=== PATIENT | male | born 1950 | race Caucasian/White ===

== ENCOUNTER 2020-07-03 15:26 | Emergency (ER) | payer MEDICARE, OTHER, SELFPAY | END 2020-07-03 16:44 | disposition left against medical advice (07) | PROVIDERS: Emergency Provider Emergency Medicine; PCP Internal Medicine | DX: R30.0 Dysuria (principal) | CPT/HCPCS: 99281 ==

== ENCOUNTER 2020-07-09 08:53 | Outpatient (REF) | payer MEDICARE, OTHER, SELFPAY ==
--- NOTE | 2020-07-09 | US_ITS ---
EXAMINATION: US THYROID CLINICAL INFORMATION: Multinodular goiter. COMPARISON: Thyroid ultrasound 08/22/2019 and 07/02/2018. Ultrasound-guided thyroid biopsy 06/15/2017. TECHNIQUE: Linear transducer avalos-scale and color Doppler examination with attention to the region of the thyroid. FINDINGS: SIZE: Measurements of the thyroid lobes and nodules are given in sagittal, anteroposterior and transverse dimensions respectively. Right Thyroid Lobe: 4.8 x 2.0 x 2.9 cm, volume 14.6 mL. Previously 5.0 x 3.0 x 2.8 cm, volume 21.3 mL. Parenchyma: The gland echotexture is heterogeneous. Thyroid vascularity is normal. Left Thyroid Lobe: 5.0 x 1.6 x 2.1 cm, volume 8.8 mL. Previously 5.4 x 1.8 x 2.2 cm, volume 11.3 mL. Parenchyma: The gland echotexture is heterogeneous. Thyroid vascularity is normal. Isthmus: 0.5 cm in maximum AP dimension. Previously 0.5 cm. RIGHT THYROID LOBE: There are 2 nodules seen. 1. Location: Mid pole. Size: 2.7 x 1.8 x 2.0 cm. Previous: 3.0 x 2.0 x 2.0 cm. Nodule characteristics: Heterogeneous nearly isoechoic with fine hypoechoic halo, smooth margin, no significant color flow. 2. Location: Lower pole. Size: 1.1 x 0.9 x 1.3 cm. Previous: 1.0 x 0.8 x 1.1 cm. Nodule characteristics: Moderate hypoechoic, ill-defined margin, no color flow. ISTHMUS: No nodules. LEFT THYROID LOBE: There is 1 nodule seen. 1. Location: Lower pole. Size: 0.7 x 0.5 x 0.7 cm. Previous: 0.8 x 0.7 x 0.6 cm. Nodule characteristics: Moderate hypoechoic, smooth margin, and no color flow NODES: No lymphadenopathy is seen in the tissue surrounding the thyroid gland. US/US thyroid IMPRESSION: 1. Thyroid slightly decreased in size from prior exam 08/22/2019. 2. Dominant nodule on right stable 2.7 cm, prior measurement 3.0 cm. 3. No new nodules. No adenopathy.
== END 2020-07-09 08:54 | disposition home or self-care (01) ==
LOC: HO.US 08:53
PROVIDERS: Visit Provider Internal Medicine Endocrinology, Diabetes & Metabolism
DX: E04.2 Nontoxic multinodular goiter (principal)
CPT/HCPCS: 76536

== ENCOUNTER → 2020-07-22 10:18 | Outpatient (BNVA) | payer MEDICARE, OTHER, SELFPAY | PROVIDERS: PCP Internal Medicine; Referring Provider Internal Medicine; Visit Provider Internal Medicine | DX: I48.0 Paroxysmal atrial fibrillation (principal); I42.9 Cardiomyopathy, unspecified; G47.33 Obstructive sleep apnea (adult) (pediatric); Z79.01 Long term (current) use of anticoagulants | CPT/HCPCS: 93005; 99212 ==

== ENCOUNTER 2020-07-30 15:37 | Outpatient (REF) | payer MEDICARE, OTHER, SELFPAY | END 2020-07-30 15:38 | disposition home or self-care (01) | LOC: HO.LAB 15:37 | PROVIDERS: Visit Provider Internal Medicine | DX: Z20.828 Contact with and (suspected) exposure to other viral communicable diseases (principal) | CPT/HCPCS: C9803; U0003 ==

== ENCOUNTER → 2020-08-07 09:21 | Outpatient (BNVA) | payer MEDICARE, OTHER, SELFPAY | PROVIDERS: PCP Internal Medicine; Referring Provider Internal Medicine; Visit Provider Internal Medicine Endocrinology, Diabetes & Metabolism | DX: Z13.89 Encounter for screening for other disorder (principal) | CPT/HCPCS: 99212 ==

== ENCOUNTER 2020-08-07 10:21 | Outpatient (REF) | payer MEDICARE, OTHER, SELFPAY ==
[2020-08-07 15:10] LABS: Free T4 (Free Thyroxine) 1.03 ng/dL (0.71-1.85); Thyroid Stimulating Hormone 0.49 uIU/mL (0.32-4.0)
[2020-08-08 08:27] LABS: Triiodothyronine T3 Total 102 ng/dL (76-181)
== END 2020-08-07 10:22 | disposition home or self-care (01) ==
LOC: HO.10HDL 10:21
PROVIDERS: Visit Provider Internal Medicine Endocrinology, Diabetes & Metabolism
DX: E04.2 Nontoxic multinodular goiter (principal)
CPT/HCPCS: 84439; 84443; 84480; 99212

== ENCOUNTER 2020-08-25 07:57 | Outpatient (REF) | payer MEDICARE, OTHER, SELFPAY | END 2020-08-25 07:58 | disposition home or self-care (01) | LOC: HO.LAB 07:57 | PROVIDERS: PCP Internal Medicine; Visit Provider Internal Medicine | DX: Z20.828 Contact with and (suspected) exposure to other viral communicable diseases (principal) | CPT/HCPCS: C9803; U0003 ==

== ENCOUNTER 2020-08-31 08:29 | Outpatient (REF) | payer MEDICARE, OTHER, SELFPAY ==
[2020-08-31 11:09] LABS: PSA,Total (Free>4and<10) 4.28 ng/mL (0.00-4.00)
[2020-09-02 10:23] LABS: Free Prostate Spec Ag 0.6 ng/mL; Percent Free Prostate Spec Ag 15 % (calc) (>25); Prostate Specific Ag Total 3.9 ng/mL (< OR = 4.0)
== END 2020-08-31 08:30 | disposition home or self-care (01) ==
LOC: HO.10HDL 08:29
PROVIDERS: Visit Provider Urology
DX: R97.20 Elevated prostate specific antigen [PSA] (principal); Z12.5 Encounter for screening for malignant neoplasm of prostate
CPT/HCPCS: 84153; 84154

== ENCOUNTER 2020-09-07 08:28 | Outpatient (REF) | payer MEDICARE, OTHER, SELFPAY | END 2020-09-07 08:29 | disposition home or self-care (01) | LOC: HO.LAB 08:28 | PROVIDERS: PCP Internal Medicine; Visit Provider Internal Medicine | DX: Z20.828 Contact with and (suspected) exposure to other viral communicable diseases (principal) | CPT/HCPCS: C9803; U0003 ==

== ENCOUNTER → 2020-09-15 13:51 | Outpatient (BNVA) | payer MEDICARE, OTHER, SELFPAY | PROVIDERS: PCP Internal Medicine; Visit Provider Urology | DX: Z13.89 Encounter for screening for other disorder (principal) | CPT/HCPCS: Q3014 ==

== ENCOUNTER 2020-10-27 07:33 | Outpatient (REF) | payer MEDICARE, OTHER, SELFPAY | END 2020-10-27 07:34 | disposition home or self-care (01) | LOC: HO.LAB 07:33 | PROVIDERS: Visit Provider Internal Medicine | DX: Z20.822 Contact with and (suspected) exposure to COVID-19 (principal) | CPT/HCPCS: 36415; C9803; U0003; U0005 ==

== ENCOUNTER → 2020-10-29 14:10 | Outpatient (REF) | payer MEDICARE, OTHER, SELFPAY ==
--- NOTE | 2020-10-29 14:09 | ECG_ITS ---
Hook-up date: 2020-10-29 14:24:00 Duration: 22:35:00 Test Indications: PAF Medications: 42022 QRS complexes 1897 Ventricular ectopics which represent 2 % of total QRS comp. * Supraventricular ectopics which represent % of total QRS comp. * Paced QRS complexs which represent % of total QRS comp. VENTRICULAR ECTOPY 1846 Isolated 3 Bigeminal Cycles 24 Couplets 1 Runs 3 Beats in Runs 3 Beats LONGEST at 118 BPM at 04:38:15 2020-10-30 3 Beats FASTEST at 118 BPM at 04:38:15 2020-10-30 SUPRAVENTRICULAR ECTOPY * Isolated * Couplets * Runs * Beats in Runs * Beats LONGEST at * BPM at :: -- * Beats FASTEST at * BPM at :: -- HEART RATES 39 MIN at 01:10:26 2020-10-30 76 AVG 202 MAX at 14:47:01 2020-10-29 LONGEST RR 2.6640 secs at 01:16:48 2020-10-30 S-T LEVELS Channel 1 - 128 mm at 14:24:00 2020-10-29 - 128 mm at 14:24:00 2020-10-29 Channel 2 - 128 mm at 14:24:00 2020-10-29 - 128 mm at 14:24:00 2020-10-29 Channel 3 - 128 mm at 03:34:31 -- - 128 mm at 03:34:31 Basic rhythm Atrial fibrillation No long pause or profound bradycardia Adequate overall rate control with average HR of 76 bpm, however HR goes as high as 202 bpm Frequent Premature ventricular complexes One 3 beat beronica of NSVT at 118 bpm Patient did not report any symptoms in the diary Referred By: Zay Laguna Overread By: CRUZ CACERES MD
== END ==
LOC: HO.CARD 14:10
PROVIDERS: Visit Provider Internal Medicine
DX: I48.0 Paroxysmal atrial fibrillation (principal)
CPT/HCPCS: 93225; 93226

== ENCOUNTER → 2020-11-09 10:44 | Outpatient (BNVA) | payer MEDICARE, OTHER, SELFPAY | PROVIDERS: PCP Internal Medicine; Visit Provider Internal Medicine | DX: I48.0 Paroxysmal atrial fibrillation (principal); I42.8 Other cardiomyopathies; G47.33 Obstructive sleep apnea (adult) (pediatric) | CPT/HCPCS: 99212 ==

== ENCOUNTER → 2020-11-23 10:55 | Outpatient (REF) | payer MEDICARE, OTHER, SELFPAY | LOC: HO.SL 10:55 | PROVIDERS: Visit Provider Internal Medicine | DX: G47.33 Obstructive sleep apnea (adult) (pediatric) (principal) | CPT/HCPCS: 95806 ==

== ENCOUNTER → 2020-12-15 13:43 | Outpatient (REF) | payer MEDICARE, OTHER, SELFPAY ==
--- NOTE | 2020-12-15 13:47 | CA_ITS ---
Transthoracic Echocardiogram Patient (Last, First, Middle): Isaiah Dover F Gender: Male Date of : 1950 Age: 70 Procedure Date: 12/15/2020 Procedure Type: Transthoracic Echocardiogram Location: OP Height: 193.04 cm Weight: 122.47 kg BSA: 2.52 m2 Heart Rate: bpm BP: 132 / 78 mmHg Cellular Tower Climber: BARNEY Referring MD: Zay Laguna MD Symptoms: I42.9 - Cardiomyopathy, unspecified Study Quality: Fair ECG Rhythm: Atrial Fibrillation Conclusions: - The left ventricular systolic function is mildly decreased. The visually estimated ejection fraction is between 45-50%. - The left atrium is mildly dilated. - There is mild calcification of the aortic valve. - No obvious valvular pathology seen on this study. - The inferior vena cava is dilated and collapses greater than 50% with inspiration. Findings Left Ventricle Normal left ventricular cavity size. There is mildly increased left ventricular wall thickness. The left ventricular systolic function is mildly decreased. The visually estimated ejection fraction is between 45-50%. There is mild global hypokinesis. Diastolic function is indeterminate on the basis of available data. Right Ventricle Normal right ventricular cavity size and systolic function. Atria The left atrium is mildly dilated. The right atrium is normal in size. Aortic Valve There is a normal trileaflet aortic valve. There is mild calcification of the aortic valve. There is no aortic valve stenosis. There is mild aortic valve regurgitation. Mitral Valve The mitral valve appears normal. There is trace mitral valve regurgitation. There is no mitral valve stenosis. Pulmonic Valve The pulmonic valve was not well visualized. Tricuspid Valve Normal tricuspid valve structure. There is trace tricuspid valve regurgitation. The pulmonary artery systolic pressure is normal. Great Vessels The aortic annulus, sinuses of valsalva, and asc aorta are normal in size. Venous The inferior vena cava is dilated and collapses greater than 50% with inspiration. Pericardium/Pleural There is no evidence of pericardial effusion. Prior Study Comparison No significant change compared to prior study dated: 06/15/2020. Recommendations, Care & Conclusions No obvious valvular pathology seen on this study. Measurements M-Mode Liner Measurements Normals - Women/Men AOV Cusps: 1.90 1.5-2.6 cm/m2 2D Linear Measurements IVSd: 1.46 0.6-0.9/0.6-1.0 cm LVIDd: 3.59 3.9-5.3/4.2-5.9 cm LVIDd Index: 0.24 2.4-3.2/2.2-3.1 cm/m2 LVIDs: 3.04 2.0-3.6 cm LVPWd: 1.09 0.7-1.1 cm Ao Root: 3.00 2.1-3.5 cm LA Diam: 5.20 2.7-3.8/3.0-4.0 cm LAIDs Index: 0.34 1.5-2.3 cm/m2 LV Mass: 192.62 67-162/88-224 g LV Mass Index: 12.63 43-95/49-115 g/m2 LVOT Diam: 2.50 3.0+(-)1.3 cm 2D Systolic Function EF 4C: 41.00 >55% Mitral Valve MV Pk E: 0.87 MV Decel Time: 174.00 PHT: 51.00 MVA PHT: 4.31 Decel Mes[place]: 5.00 Aortic Valve AoV Pk James: 1.36 AoV Pk Grad: 7.00 AI Pk James: 4.49 AI [place]: 1.53 LVOT LVOT Pk James: 0.75 LVOT Mn James: 0.55 LVOT VTI: 0.16 LVOT Pk Grad: 2.00 LVOT Mn Grad: 1.00 LVOT Diam: 2.50 LVOT Area: 4.91 Diastolic Function MV Pk E: 0.87 Tricuspid Valve TR Pk James: 2.46 TR Pk Grad: 24.00 RA Press: 8.00 RVSP: 32.00 Great Vessels Aorta Ao Root-2D: 3.00 2.0-3.7 cm Ao Asc: 3.50 2.1-3.4 cm Ao Arch: 2.80 Pulmonary Valve PV Pk James: 0.80 Peak PV Grad: 3.00 Updated in Other Vendor System with Status of Final Zay Laguna MD electronically signed on 12/16/2020 9:13:53 AM with status of Final
== END ==
LOC: HO.CARD 13:43
PROVIDERS: Visit Provider Internal Medicine
DX: I42.9 Cardiomyopathy, unspecified (principal); I25.10 Atherosclerotic heart disease of native coronary artery without angina pectoris
CPT/HCPCS: 93306

== ENCOUNTER → 2020-12-21 10:49 | Outpatient (BNVA) | payer MEDICARE, OTHER, SELFPAY | PROVIDERS: PCP Internal Medicine; Visit Provider Internal Medicine | DX: I48.0 Paroxysmal atrial fibrillation (principal); I42.8 Other cardiomyopathies; E66.01 Morbid (severe) obesity due to excess calories; R06.83 Snoring | CPT/HCPCS: 99212 ==

== ENCOUNTER 2021-04-05 07:32 | Outpatient (REF) | payer MEDICARE, OTHER, SELFPAY | END 2021-04-05 07:33 | disposition home or self-care (01) | LOC: HO.10HDL 07:32 | PROVIDERS: Visit Provider Urology | DX: Z12.5 Encounter for screening for malignant neoplasm of prostate (principal); R97.20 Elevated prostate specific antigen [PSA] | CPT/HCPCS: 36415; 84153 ==

== ENCOUNTER → 2021-04-14 14:08 | Outpatient (BNVA) | payer MEDICARE, OTHER, SELFPAY | PROVIDERS: Visit Provider Urology | DX: N40.1 Benign prostatic hyperplasia with lower urinary tract symptoms (principal); N13.8 Other obstructive and reflux uropathy; N39.0 Urinary tract infection, site not specified; A49.9 Bacterial infection, unspecified; R97.20 Elevated prostate specific antigen [PSA] | CPT/HCPCS: 99212 ==

== ENCOUNTER 2021-05-18 12:12 | Outpatient (REF) | payer MEDICARE, OTHER, SELFPAY ==
[2021-05-18 13:49] LABS: Glucose Urine UA NEG (NEG); Leukocyte Esterase Urine 1+ (NEG); Nitrite Urine NEG (NEG); Urine Blood NEG (NEG); Urine Ketones NEG (NEG); Urine Protein NEG (NEG-TRACE)
[2021-05-18 13:56] LABS: Appearance Urine CLEAR; Color Urine YELLOW
[2021-05-18 14:18] LABS: Bacteria Urine 1+ /LPF; RBC Urine 0-2 /HPF (0); Squamous Epithelial Cell Urine 1+ /LPF
== END 2021-05-18 12:13 | disposition home or self-care (01) ==
LOC: HO.10HDL 12:12
PROVIDERS: Visit Provider Urology
DX: N13.8 Other obstructive and reflux uropathy (principal); N40.1 Benign prostatic hyperplasia with lower urinary tract symptoms
CPT/HCPCS: 81001; 87086

== ENCOUNTER → 2021-06-22 09:44 | Outpatient (BNVA) | payer MEDICARE, OTHER, SELFPAY | PROVIDERS: PCP Internal Medicine; Referring Provider Internal Medicine; Visit Provider Internal Medicine | DX: E66.01 Morbid (severe) obesity due to excess calories (principal); I42.8 Other cardiomyopathies; I48.19 Other persistent atrial fibrillation; R06.83 Snoring | CPT/HCPCS: 99212 ==

== ENCOUNTER 2021-08-27 07:46 | Outpatient (REF) | payer MEDICARE, OTHER, SELFPAY ==
[2021-08-27 10:05] LABS: MANUAL DIFF FLAG NO
[2021-08-27 10:08] LABS: Basophils Percent Auto 0.5 % (0-2); Eosinophils Absolute Auto 0.3 X10*3/uL (0.0-0.4); Eosinophils Percent Auto 3.7 % (0-4); Hematocrit 41.6 % (42.0-52.0); Hemoglobin 13.6 g/dl (14.0-18.0); Imm Gran Abs Auto 0.02 X10*3/uL (0.00-0.03); Imm Gran Pct Auto 0.3 % (0.0-0.4); Lymphocytes Absolute Auto 1.4 X10*3/uL (1.2-4.9); Lymphocytes Percent Auto 17.4 % (20-40); Mean Corpuscular HGB Conc 32.7 g/dl (31.0-36.0); Mean Corpuscular Hemoglobin 28.6 pg (27.0-33.0); Mean Corpuscular Volume 87.4 fL (80.0-98.0); Mean Platelet Volume 9.9 fL (9.4-12.4); Monocytes Absolute Auto 0.7 X10*3/uL (0.1-1.2); Monocytes Percent Auto 8.3 % (2-11); Neutrophils Absolute Auto 5.5 x10*3/uL (2.0-8.3); Neutrophils Percent Auto 69.8 % (45-73); Platelet Count 212 X10*3/uL (160-400); Red Blood Count 4.76 X10*6/uL (4.60-5.80); White Blood Count 7.8 X10*3/uL (4.8-10.8)
[2021-08-27 10:44] LABS: Cholesterol 106 mg/dL; HDL Cholesterol 25 mg/dL; LDL Cholesterol Calculated 56 mg/dl; Triglycerides 128 mg/dL
[2021-08-27 11:05] LABS: Free T4 (Free Thyroxine) 1.04 ng/dL (0.71-1.85)
[2021-08-27 11:25] LABS: Folate > 20.0 ng/mL (> or = 4.0)
[2021-08-27 12:45] LABS: Vitamin B12 424 pg/mL (200-900)
== END 2021-08-27 07:47 | disposition home or self-care (01) ==
LOC: HO.10HDL 07:46
PROVIDERS: Visit Provider Internal Medicine
DX: E11.65 Type 2 diabetes mellitus with hyperglycemia (principal); E78.00 Pure hypercholesterolemia, unspecified
CPT/HCPCS: 36415; 80061; 82607; 82746; 84439; 84443; 85025

== ENCOUNTER 2021-12-15 08:31 | Outpatient (REF) | payer MEDICARE, OTHER, SELFPAY ==
[2021-12-15 10:31] LABS: MANUAL DIFF FLAG NO
[2021-12-15 10:37] LABS: Basophils Percent Auto 0.4 % (0-2); Eosinophils Absolute Auto 0.2 X10*3/uL (0.0-0.4); Eosinophils Percent Auto 2.8 % (0-4); Hematocrit 45.6 % (42.0-52.0); Hemoglobin 15.1 g/dl (14.0-18.0); Imm Gran Abs Auto 0.03 X10*3/uL (0.00-0.03); Imm Gran Pct Auto 0.4 % (0.0-0.4); Immature Retic Fraction 9.8 % (2.3-13.4); Lymphocytes Absolute Auto 1.4 X10*3/uL (1.2-4.9); Lymphocytes Percent Auto 17.3 % (20-40); Mean Corpuscular HGB Conc 33.1 g/dl (31.0-36.0); Mean Corpuscular Hemoglobin 28.8 pg (27.0-33.0); Monocytes Absolute Auto 0.7 X10*3/uL (0.1-1.2); Monocytes Percent Auto 8.9 % (2-11); Neutrophils Absolute Auto 5.6 x10*3/uL (2.0-8.3); Neutrophils Percent Auto 70.2 % (45-73); Platelet Count 181 X10*3/uL (160-400); Red Blood Count 5.24 X10*6/uL (4.60-5.80); Red Cell Distribution Width 13.1 % (11.0-16.0); Retic HGB Equivalent 31.5 pg (30.0-35.0); Reticulocyte Percent 1.8 % (0.5-1.8); Reticulocytes Absolute 0.093 X10*6/uL (0.026-0.095)
[2021-12-15 10:54] LABS: Alanine Aminotransferase 19 U/L (0-40); Albumin Level 4.2 g/dL (3.5-5.0); Alkaline Phosphatase 63 U/L (39-117); Anion Gap 13 (12-20); Aspartate Amino Transferase 16 U/L (5-37); Bilirubin Total 0.9 mg/dL (0.0-1.0); Blood Urea Nitrogen 25 mg/dL (9-16); Calcium 9.4 mg/dL (8.4-10.2); Carbon Dioxide 27 mmol/L (22-29); Chloride 102 mmol/L (96-108); Estimated Glomerular Filt Rate 50; Glucose Random 176 mg/dL (60-115); Iron 71 mcg/dL (45-160); Percent Iron Saturation 21 % (15-50); Potassium 3.8 mmol/L (3.3-5.1); Sodium 138 mmol/L (135-145); Total Iron Binding Capacity 337 mcg/dL (228-428); Total Protein 6.9 g/dL (6.5-8.0); Unsaturated Iron Binding 266 ug/dL
[2021-12-15 11:16] LABS: Free T4 (Free Thyroxine) 1.07 ng/dL (0.71-1.85); Thyroid Stimulating Hormone 0.75 uIU/mL (0.32-4.0)
[2021-12-15 11:24] LABS: Creatinine Urine 237.61 mg/dL; Microalbum/Creatinine Ratio Ur 19.7 ug/mg cr
== END 2021-12-15 08:32 | disposition home or self-care (01) ==
LOC: HO.10HDL 08:31
PROVIDERS: Internal Medicine Endocrinology, Diabetes & Metabolism; Visit Provider Internal Medicine
DX: D64.9 Anemia, unspecified (principal); E04.2 Nontoxic multinodular goiter; E11.65 Type 2 diabetes mellitus with hyperglycemia
CPT/HCPCS: 36415; 80053; 82043; 83540; 84439; 84443; 85025; 85045

== ENCOUNTER → 2021-12-17 13:48 | Outpatient (REF) | payer MEDICARE, OTHER, SELFPAY ==
--- NOTE | 2021-12-17 13:53 | HM_ITS ---
Conclusion: 1. Patient was monitored for total period of 2 days and 19 hours 2. Baseline rhythm is atrial fibrillation with average heart of 82 beats per minute, overall adequate rate control 3. Fastest heart rate in atrial fibrillation 188 beats per minute, no symptoms reported at that time 4. Multiple pauses with longest pause of 2.57 seconds 5. Multiple short runs of 3-4 beat salvos of wide complex consistent with nonsustained VT 6. Total of 12,534 PVCs accounting for 3.76% total burden account for frequent PVCs 7. No patient reported events MTDD
--- NOTE | 2021-12-17 13:53 | CA_ITS ---
Transthoracic Echocardiogram Patient (Last, First, Middle): Isaiah Dover F Gender: Male Date of : 1950 Age: 71 Procedure Date: 12/17/2021 Procedure Type: Transthoracic Echocardiogram Location: OP Height: 193.04 cm Weight: 120.2 kg BSA: 2.50 m2 Heart Rate: bpm BP: 125 / 80 mmHg Coiled Tubing Operator: TO Referring MD: Zay Laguna MD Symptoms: I42.8 - Other cardiomyopathies Study Quality: Fair ECG Rhythm: Atrial Fibrillation Conclusions: - The left ventricular systolic function is normal. The visually estimated ejection fraction is between 55-60%. - Moderately increased right ventricular cavity size. - The left atrium is moderately dilated. - There is mild calcification of the aortic valve. - There is mild mitral annular calcification. Findings Left Ventricle Normal left ventricular cavity size. There is moderately increased left ventricular wall thickness. The left ventricular systolic function is normal. The visually estimated ejection fraction is between 55-60%. There is no evidence of regional wall motion abnormalities. Diastolic function is indeterminate on the basis of available data. Right Ventricle Moderately increased right ventricular cavity size. There is normal right ventricular systolic function. Atria The left atrium is moderately dilated. The right atrium is mildly dilated. Aortic Valve There is mild calcification of the aortic valve. There is no aortic valve stenosis. There is trace (trivial) aortic valve regurgitation. Mitral Valve There is mild mitral annular calcification. There is trace mitral valve regurgitation. There is no mitral valve stenosis. Pulmonic Valve The pulmonic valve is likely normal. Tricuspid Valve There is mild tricuspid valve regurgitation. The pulmonary artery systolic pressure is normal. Great Vessels The asc aorta and aortic arch are normal in size. Small plaque is seen in the sino tubular ridge. Venous The inferior vena cava is mildly dilated and collapses greater than 50% with inspiration. There is a possible dilated coronary sinus. Pericardium/Pleural Widened pericardial space, unable to distinguish between adipose tissue and effusion. Prior Study Comparison Changes noted compared to prior study dated: 12/15/2020. LVEF higher than previously reported. RV size enlarged. Measurements 2D Linear Measurements IVSd: 1.42 0.6-0.9/0.6-1.0 cm LVIDd: 4.33 3.9-5.3/4.2-5.9 cm LVIDd Index: 1.73 2.4-3.2/2.2-3.1 cm/m2 LVIDs: 2.99 2.0-3.6 cm LVPWd: 1.32 0.7-1.1 cm LA Diam: 4.80 2.7-3.8/3.0-4.0 cm LAIDs Index: 1.92 1.5-2.3 cm/m2 LV Mass: 283.10 67-162/88-224 g LV Mass Index: 113.24 43-95/49-115 g/m2 LVOT Diam: 2.40 3.0+(-)1.3 cm 2D Systolic Function EF 4C: 43.20 >55% EF 2C: 47.70 >55% EF BiP: 44.60 >55% Mitral Valve MV Pk E: 0.91 MV Decel Time: 147.00 E'Lateral: 11.90 E'Medial: 6.64 E/E' Med: 13.80 E/E' Lat: 7.70 PHT: 43.00 MVA PHT: 5.12 Decel [place]: 6.20 Aortic Valve AoV Pk James: 1.26 AoV Mn James: 0.89 AoV VTI: 0.23 AoV Pk Grad: 6.00 Aov Mn Grad: 3.00 JOSEPHINE Cont.VTI: 2.84 LVOT LVOT Pk James: 0.75 LVOT Mn James: 0.47 LVOT VTI: 0.15 LVOT Pk Grad: 2.00 LVOT Mn Grad: 1.00 LVOT Diam: 2.40 LVOT Area: 4.52 Diastolic Function MV Pk E: 0.91 E'Medial: 6.64 E/E' Med: 13.80 E' Laterial: 11.90 E/E' Lat: 7.70 Right Ventricle TAPSE (mm): 21.40 TVS' James: 9.68 Tricuspid Valve TR Pk James: 2.47 TR Pk Grad: 24.00 RA Press: 8.00 RVSP: 32.00 Great Vessels Aorta Sinus of Valsalva: 3.30 2.0-3.[address] Ridge: 2.83 1.7-3.4 cm Ao Asc: 3.60 2.1-3.4 cm Ao Arch: 3.20 Pulmonary Valve PV Pk James: 0.81 Peak PV Grad: 3.00 Updated in Other Vendor System with Status of Final Zay Laguna MD electronically signed on 12/19/2021 11:49:48 AM with status of Final
== END ==
LOC: HO.CARD 13:48
PROVIDERS: PCP Internal Medicine; Visit Provider Internal Medicine
DX: I48.19 Other persistent atrial fibrillation (principal); I42.8 Other cardiomyopathies
CPT/HCPCS: 93242; 93306

== ENCOUNTER → 2021-12-28 09:42 | Outpatient (BNVA) | payer MEDICARE, OTHER, SELFPAY | PROVIDERS: PCP Internal Medicine; Referring Provider Internal Medicine; Visit Provider Internal Medicine | DX: I48.19 Other persistent atrial fibrillation (principal); I42.8 Other cardiomyopathies; R06.83 Snoring; E66.01 Morbid (severe) obesity due to excess calories; Z68.33 Body mass index [BMI] 33.0-33.9, adult; Z79.01 Long term (current) use of anticoagulants | CPT/HCPCS: 93005; 99212 ==

== ENCOUNTER 2021-12-29 15:28 | Outpatient (REF) | payer MEDICARE, OTHER, SELFPAY ==
--- NOTE | ~2021-12-29 | US_ITS ---
EXAMINATION: US THYROID CLINICAL INFORMATION: Nontoxic multinodular goiter. COMPARISON: Ultrasound soft tissue head/neck thyroid dated 07/09/2020 and 08/22/2019. TECHNIQUE: Linear transducer grayscale and color Doppler examination with attention to the region of the thyroid. FINDINGS: SIZE: Measurements of the thyroid lobes and nodules are given in sagittal, anteroposterior and transverse dimensions respectively. Right Thyroid Lobe: 6.4 x 2.9 x 2.6 cm, volume 25.2 mL. Previously 4.8 x 2.0 x 2.9 cm, volume 14.6 mL. Parenchyma: The gland echotexture is homogeneous. Thyroid vascularity is normal. Left Thyroid Lobe: 5.8 x 2.0 x 2.3 cm, volume 14.0 mL. Previously 5.0 x 1.6 x 2.1 cm, volume 8.8 mL. Parenchyma: The gland echotexture is homogeneous. Thyroid vascularity is normal. Isthmus: 0.5 cm in maximum AP dimension. Previously 0.5 cm. Estimated total number of nodules greater than or equal to 1 cm: 2. Spinning Frame Cleaner nodules are described as follows: On the provided imaging, the large right mid solid right thyroid nodule (previously 2.7 x 1.8 x 2.0 cm in size) is not definitely seen as a discrete nodule on today's study. 1. Location: Right mid. Size: 0.8 x 0.4 x 0.5 cm, volume 0.08 mL. Previously: 2.7 x 1.8 x 2.0 cm, volume 5.1 mL. Nodule characteristics: Composition: Solid (2). Echogenicity: Hypoechoic (2). Shape: Not taller than wide (0). Margins: Ill-defined (0). Echogenic Foci: None (0). ACR TI-RADS total points: 4 ACR TI-RADS category: 4 Significant change in size (>/= 20% in 2 dimensions and minimal increase of 2 mm or 50% or greater increase in volume): No Change in features: Yes. Smaller. Change in ACR TI-RADS risk category: 2. Location: Right inferior. Size: 1.4 x 1.1 x 1.3 cm, volume 1.0 mL. Previously: 1.1 x 0.9 x 1.3 cm, volume 0.7 mL. Nodule characteristics: Composition: Solid (2). Echogenicity: Very hypoechoic (3). Shape: Not taller than wide (0). Margins: Ill-defined (0). Echogenic Foci: None (0). Colloid crystals present. ACR TI-RADS total points: 5 ACR TI-RADS category: 4 Significant change in size (>/= 20% in 2 dimensions and minimal increase of 2 mm or 50% or greater increase in volume): Yes Change in features: No Change in ACR TI-RADS risk category: N/A 3. Location: Right superior. Size: 0.4 x 0.3 x 0.5 cm, volume 0.03 mL. Previously: Not documented on the prior study. Nodule characteristics: Composition: Mixed cystic and solid (1). Echogenicity: Hypoechoic (2). Shape: Not taller than wide (0). Margins: Ill-defined (0). Echogenic Foci: None (0). Colloid crystal present. ACR TI-RADS total points: 3 ACR TI-RADS category: 3 4. Location: Isthmus. Size: 0.3 x 0.1 x 0.3 cm, volume 0.004 mL. Previously: Not documented on the prior study. Nodule characteristics: Composition: Solid (2). Echogenicity: Hypoechoic (2). Shape: Not taller than wide (0). Margins: Ill-defined (0). Echogenic Foci: None (0). ACR TI-RADS total points: 4 ACR TI-RADS category: 4 5. Location: Left superior. Size: 0.5 x 0.3 x 0.3 cm, volume 0.02 mL. Previously: Not documented on the prior study. Nodule characteristics: Composition: Mixed cystic and solid (1). Echogenicity: Hypoechoic (2). Shape: Not taller than wide (0). Margins: Ill-defined (0). Echogenic Foci: Comet-tail artifacts (0). Colloid crystals present. ACR TI-RADS total points: 3 ACR TI-RADS category: 3 6. Location: Left inferior. Size: 1.2 x 0.8 x 0.9 cm, volume 0.5 mL. Previously: 0.7 x 0.5 x 0.7 cm, volume 0.13 mL. Nodule characteristics: Composition: Solid (2). Echogenicity: Hypoechoic (2). Shape: Not taller than wide. Margins: Smooth (0). Echogenic Foci: No ACR TI-RADS total points: 4 ACR TI-RADS category: 4 Significant change in size (>/= 20% in 2 dimensions and minimal increase of 2 mm or 50% or greater increase in volume): Yes Change in features: No Change in ACR TI-RADS risk category: Not applicable NODES: No lymphadenopathy is seen in the tissue surrounding the thyroid gland. US/US thyroid IMPRESSION: No thyroid gland enlargement. No hyperemia. Right inferior thyroid nodule with TI-RADS 4 category measuring 1.4 cm in maximum dimension for which followup in 1, 2, 3, and 5 years is recommended. Left inferior thyroid nodule with TI-RADS category of 4 and maximum dimension of 1.2 cm for which followup in 1, 2, 3, and 5 years is recommended. ACR TI-RADS RECOMMENDATION REFERENCE: * TR1 (0 point) and TR 2 (2 points): No FNA or follow up * TR3 (3 points): FNA if more than or equal to 2.5 cm in maximum dimension, followup ultrasound in 1, 3 and 5 years if 1.5 to 2.4 cm in maximum dimension. * TR4 (4-6 points): FNA if more than or equal to 1.5 cm in maximum dimension, followup ultrasound in 1, 2, 3 and 5 years if 1 to 1.4 cm in maximum dimension. * TR5 (more than or equal to 7 points): FNA if more than or equal to 1 cm in maximum dimension, followup ultrasound every year for 5 years if 0.5 to 0.9 cm in maximum dimension. * TR3, TR4 or TR5 nodules that are below the size threshold for follow up receive no follow up.
== END 2021-12-29 15:29 | disposition home or self-care (01) ==
LOC: HO.US 15:28
PROVIDERS: Visit Provider Internal Medicine Endocrinology, Diabetes & Metabolism
DX: E04.2 Nontoxic multinodular goiter (principal)
CPT/HCPCS: 76536

== ENCOUNTER → 2022-01-06 12:42 | Outpatient (BNVA) | payer MEDICARE, OTHER, SELFPAY | PROVIDERS: PCP Internal Medicine; Visit Provider Internal Medicine Endocrinology, Diabetes & Metabolism | DX: E04.2 Nontoxic multinodular goiter (principal); Z98.890 Other specified postprocedural states | CPT/HCPCS: 99212 ==

== ENCOUNTER 2022-03-28 07:34 | Outpatient (REF) | payer MEDICARE, OTHER, SELFPAY ==
[2022-03-28 11:18] LABS: Prostate Specific Antigen 5.26 ng/mL (<0.05-4.0)
== END 2022-03-28 07:35 | disposition home or self-care (01) ==
LOC: HO.10HDL 07:34
PROVIDERS: Visit Provider Urology
DX: Z12.5 Encounter for screening for malignant neoplasm of prostate (principal); N13.8 Other obstructive and reflux uropathy; N40.1 Benign prostatic hyperplasia with lower urinary tract symptoms; R97.20 Elevated prostate specific antigen [PSA]
CPT/HCPCS: 36415; 84153

== ENCOUNTER → 2022-04-12 10:11 | Outpatient (BNVA) | payer MEDICARE, OTHER, SELFPAY | PROVIDERS: PCP Internal Medicine; Visit Provider Urology | DX: N40.1 Benign prostatic hyperplasia with lower urinary tract symptoms (principal); N13.8 Other obstructive and reflux uropathy; R97.20 Elevated prostate specific antigen [PSA] | CPT/HCPCS: 51798; 99212 ==

== ENCOUNTER 2022-05-04 07:24 | Outpatient (REF) | payer MEDICARE, OTHER, SELFPAY ==
[2022-05-04 11:13] LABS: Uric Acid 5.5 mg/dL (3.4-7.0)
[2022-05-04 11:36] LABS: Ferritin 108 ng/mL (20-250); Free T4 (Free Thyroxine) 1.02 ng/dL (0.71-1.85); Thyroid Stimulating Hormone 0.72 uIU/mL (0.32-4.0)
[2022-05-04 12:11] LABS: Folate > 20.0 ng/mL (> or = 4.0); Vitamin B12 359 pg/mL (200-900)
== END 2022-05-04 07:25 | disposition home or self-care (01) ==
LOC: HO.10HDL 07:24
PROVIDERS: Visit Provider Internal Medicine
DX: E11.65 Type 2 diabetes mellitus with hyperglycemia (principal); D64.9 Anemia, unspecified; E04.2 Nontoxic multinodular goiter
CPT/HCPCS: 36415; 82607; 82728; 82746; 84439; 84443; 84550

== ENCOUNTER → 2022-08-01 15:46 | Outpatient (BNVA) | payer MEDICARE, OTHER, SELFPAY | PROVIDERS: PCP Internal Medicine; Visit Provider Urology ==

== ENCOUNTER 2022-10-06 07:35 | Outpatient (REF) | payer MEDICARE, OTHER, SELFPAY ==
[2022-10-06 11:32] LABS: PSA,Total (Free>4and<10) 1.77 ng/mL (0.00-4.00)
== END 2022-10-06 07:36 | disposition home or self-care (01) ==
LOC: HO.10HDL 07:35
PROVIDERS: Visit Provider Urology
DX: Z12.5 Encounter for screening for malignant neoplasm of prostate (principal); N13.8 Other obstructive and reflux uropathy; N40.1 Benign prostatic hyperplasia with lower urinary tract symptoms
CPT/HCPCS: 36415; 84153

== ENCOUNTER 2022-10-12 09:53 | Outpatient (REF) | payer MEDICARE, OTHER, SELFPAY ==
[2022-10-12 17:37] LABS: Urine Cytology See Pathology rpt
== END 2022-10-12 09:54 | disposition home or self-care (01) ==
LOC: HO.LAB 09:53
PROVIDERS: PCP Internal Medicine; Visit Provider Urology
DX: R31.29 Other microscopic hematuria (principal); R97.20 Elevated prostate specific antigen [PSA]
CPT/HCPCS: 51798; 88112; 99212

== ENCOUNTER → 2022-12-20 10:46 | Outpatient (REF) | payer MEDICARE, OTHER, SELFPAY ==
--- NOTE | 2022-12-20 10:49 | HM_ITS ---
* Total monitoring time about 3 days. * Underlying rhythm is atrial fibrillation. * Average ventricular rate 81/Min. Range 64 to 180/Min. About 4% the time, rate greater than 100/Min. * Frequent PVCs with a burden of 1.7%. Longest run 3 beats. * No significant pauses. * No patient markers or events in diary. * Overall, reasonable rate control, but there is tendency for rapid rates. MTDD
== END ==
LOC: HO.CARD 10:46
PROVIDERS: PCP Internal Medicine; Visit Provider Internal Medicine
DX: I48.19 Other persistent atrial fibrillation (principal)
CPT/HCPCS: 93242

== ENCOUNTER 2022-12-21 07:38 | Outpatient (REF) | payer MEDICARE, OTHER, SELFPAY ==
[2022-12-21 10:49] LABS: MANUAL DIFF FLAG NO
[2022-12-21 11:07] LABS: Basophils Percent Auto 0.4 % (0-2); Eosinophils Absolute Auto 0.2 X10*3/uL (0.0-0.4); Eosinophils Percent Auto 2.8 % (0-4); Hematocrit 44.4 % (42.0-52.0); Hemoglobin 14.6 g/dl (14.0-18.0); Imm Gran Abs Auto 0.03 X10*3/uL (0.00-0.03); Imm Gran Pct Auto 0.4 % (0.0-0.4); Lymphocytes Absolute Auto 1.4 X10*3/uL (1.2-4.9); Lymphocytes Percent Auto 16.7 % (20-40); Mean Corpuscular HGB Conc 32.9 g/dl (31.0-36.0); Mean Corpuscular Hemoglobin 28.6 pg (27.0-33.0); Mean Corpuscular Volume 86.9 fL (80.0-98.0); Mean Platelet Volume 9.8 fL (9.4-12.4); Monocytes Absolute Auto 0.6 X10*3/uL (0.1-1.2); Monocytes Percent Auto 7.5 % (2-11); Neutrophils Absolute Auto 6.1 x10*3/uL (2.0-8.3); Neutrophils Percent Auto 72.2 % (45-73); Platelet Count 183 X10*3/uL (160-400); Red Blood Count 5.11 X10*6/uL (4.60-5.80); Red Cell Distribution Width 13.3 % (11.0-16.0); Retic HGB Equivalent 33.6 pg (30.0-35.0); Reticulocyte Percent 1.8 % (0.5-1.8); Reticulocytes Absolute 0.092 X10*6/uL (0.026-0.095); White Blood Count 8.5 X10*3/uL (4.8-10.8)
[2022-12-21 11:28] LABS: Estimated Average Glucose 192 mg/dL; Hemoglobin A1c % 8.3 %
[2022-12-21 11:29] LABS: Creatinine Urine 245.46 mg/dL; Microalbum/Creatinine Ratio Ur 29.3 ug/mg cr
[2022-12-21 11:30] LABS: Alanine Aminotransferase 17 U/L (0-40); Albumin Level 4.3 g/dL (3.5-5.0); Alkaline Phosphatase 53 U/L (39-117); Anion Gap 14 (12-20); Aspartate Amino Transferase 17 U/L (5-37); Blood Urea Nitrogen 18 mg/dL (9-16); Calcium 9.4 mg/dL (8.4-10.2); Carbon Dioxide 27 mmol/L (22-29); Chloride 105 mmol/L (96-108); Estimated Glomerular Filt Rate > 60; Glucose Random 98 mg/dL (60-115); Iron 69 mcg/dL (45-160); Percent Iron Saturation 22 % (15-50); Potassium 4.1 mmol/L (3.3-5.1); Sodium 142 mmol/L (135-145); Total Iron Binding Capacity 308 mcg/dL (228-428); Total Protein 6.9 g/dL (6.5-8.0); Unsaturated Iron Binding 239 ug/dL
[2022-12-21 12:01] LABS: Ferritin 79 ng/mL (20-250); Folate 18.9 ng/mL (> or = 4.0); Free T4 (Free Thyroxine) 1.06 ng/dL (0.71-1.85); Thyroid Stimulating Hormone 0.65 uIU/mL (0.32-4.0); Vitamin B12 497 pg/mL (200-900)
== END 2022-12-21 07:39 | disposition home or self-care (01) ==
LOC: HO.10HDL 07:38
PROVIDERS: Visit Provider Internal Medicine
DX: E11.65 Type 2 diabetes mellitus with hyperglycemia (principal); E78.00 Pure hypercholesterolemia, unspecified
CPT/HCPCS: 36415; 80053; 82043; 82607; 82728; 82746; 83036; 83540; 84439; 84443; 85025; 85045

== ENCOUNTER → 2022-12-28 09:49 | Outpatient (BNVA) | payer MEDICARE, OTHER, SELFPAY | PROVIDERS: PCP Internal Medicine; Referring Provider Internal Medicine; Visit Provider Internal Medicine | DX: I48.19 Other persistent atrial fibrillation (principal); I42.8 Other cardiomyopathies; R06.83 Snoring; E66.01 Morbid (severe) obesity due to excess calories; Z68.33 Body mass index [BMI] 33.0-33.9, adult | CPT/HCPCS: 93005; 99212 ==

== ENCOUNTER → 2023-01-06 12:48 | Outpatient (BNVA) | payer MEDICARE, OTHER, SELFPAY | PROVIDERS: PCP Internal Medicine; Visit Provider Internal Medicine Endocrinology, Diabetes & Metabolism | DX: E04.2 Nontoxic multinodular goiter (principal) | CPT/HCPCS: 99212 ==

== ENCOUNTER 2023-04-03 07:23 | Outpatient (REF) | payer MEDICARE, OTHER, SELFPAY ==
[2023-04-03 11:20] LABS: MANUAL DIFF FLAG NO
[2023-04-03 11:23] LABS: Basophils Percent Auto 0.4 % (0-2); Eosinophils Absolute Auto 0.3 X10*3/uL (0.0-0.4); Eosinophils Percent Auto 3.3 % (0-4); Hematocrit 44.7 % (42.0-52.0); Hemoglobin 14.8 g/dl (14.0-18.0); Imm Gran Abs Auto 0.03 X10*3/uL (0.00-0.03); Imm Gran Pct Auto 0.4 % (0.0-0.4); Lymphocytes Absolute Auto 1.6 X10*3/uL (1.2-4.9); Lymphocytes Percent Auto 19.2 % (20-40); Mean Corpuscular HGB Conc 33.1 g/dl (31.0-36.0); Mean Corpuscular Hemoglobin 28.8 pg (27.0-33.0); Mean Platelet Volume 10.4 fL (9.4-12.4); Monocytes Absolute Auto 0.7 X10*3/uL (0.1-1.2); Neutrophils Absolute Auto 5.9 x10*3/uL (2.0-8.3); Neutrophils Percent Auto 68.7 % (45-73); Platelet Count 188 X10*3/uL (160-400); Red Blood Count 5.14 X10*6/uL (4.60-5.80); Red Cell Distribution Width 13.1 % (11.0-16.0); White Blood Count 8.5 X10*3/uL (4.8-10.8)
[2023-04-03 11:40] LABS: Estimated Average Glucose 203 mg/dL; Hemoglobin A1c % 8.7 %
[2023-04-03 11:59] LABS: Alanine Aminotransferase 19 U/L (0-40); Albumin Level 4.1 g/dL (3.5-5.0); Alkaline Phosphatase 59 U/L (39-117); Anion Gap 14 (12-20); Aspartate Amino Transferase 17 U/L (5-37); Bilirubin Total 0.8 mg/dL (0.0-1.0); Blood Urea Nitrogen 19 mg/dL (9-16); Calcium 9.1 mg/dL (8.4-10.2); Carbon Dioxide 26 mmol/L (22-29); Chloride 103 mmol/L (96-108); Cholesterol 111 mg/dL; Estimated Glomerular Filt Rate > 60; Glucose Random 123 mg/dL (60-115); HDL Cholesterol 30 mg/dL; LDL Cholesterol Calculated 47 mg/dl; Potassium 3.9 mmol/L (3.3-5.1); Sodium 139 mmol/L (135-145); Total Protein 7.2 g/dL (6.5-8.0); Triglycerides 170 mg/dL
[2023-04-03 17:31] LABS: PSA,Total (Free>4and<10) 1.33 ng/mL (0.00-4.00)
== END 2023-04-03 07:24 | disposition home or self-care (01) ==
LOC: HO.10HDL 07:23
PROVIDERS: Internal Medicine; Visit Provider Urology
DX: Z12.5 Encounter for screening for malignant neoplasm of prostate (principal); R97.20 Elevated prostate specific antigen [PSA]; E78.00 Pure hypercholesterolemia, unspecified; E11.65 Type 2 diabetes mellitus with hyperglycemia
CPT/HCPCS: 36415; 80053; 80061; 83036; 84153; 85025

== ENCOUNTER 2023-04-11 09:41 | Outpatient (AMB) | payer MEDICARE, OTHER, SELFPAY ==
--- NOTE | 2023-04-11 09:42 | MHC.OFFVIS ---
Intake Intake Visit Reasons: 6M PSA(set) Intake Note: Patient is present for Telephone PSA Urology Med: Tamsulosin, Finasteride Antibiotic Allergy: Sulfa, Trimethroprim, Keflex, Penicillin Blood Thinner:Xarelto Allergies sulfamethoxazole [From Sulfamethoxazole-Trimethoprim] Allergy (Intermediate, Verified 04/11/23 09:43) hives trimethoprim [From Sulfamethoxazole-Trimethoprim] Allergy (Intermediate, Verified 04/11/23 09:43) hives cephalexin [Keflex] Allergy (Unknown, Verified 04/11/23 09:43) unknown penicillin V Adverse Reaction (Unknown, Verified 04/11/23 09:43) shivering Medication List - Last Reconciled 04/11/23 by Carlos Walker MD allopurinol 100 mg PO DAILY carvedilol 12.5 mg PO BID carvedilol (Coreg) 6.25 mg PO BID 90 days ezetimibe 10 mg PO DAILY finasteride 5 mg PO DAILY 90 days glyburide Take 1 tablet in the morning and half a tablet in the evening PO; 90 days hydrochlorothiazide 25 mg PO DAILY lisinopril 40 mg PO DAILY metformin 1,000 mg (2 x 500 mg) PO BID rivaroxaban (Xarelto) 20 mg PO BEDTIME simvastatin 20 mg PO BEDTIME tamsulosin 0.4 mg PO DAILY HPI HPI Comments History of Present Illness Details Isaiah is a pleasant male. He is a patient of Dr. Gerard. He is seen for the following urologic condition - elevated PSA - BPH - orchitis Telemedicine Evaluation 15 min Consultation Fiber Options Sher Video attempted Significant fall in PSA after switching to finasteride Six month follow-up tele visit PSA Continue medication Elevated PSA/LUTS PSA has been variable ranging from 3.0-4.6 03/07 3.0, 03/08 3.8, 04/08 5.3, 10/10 1.8, 04/09 1.3 Known BPH Medications Flomax and finasteride Urinary stream and bladder emptying parameters remained stable Will continue with Flomax Will check PSA in 6 months has 2019 renal cancer diagnosis [facility] Medical History Cardiomyopathy Colon cancer screening Diverticular disease Elevated PSA Essential hypertension Gout Hypercholesterolemia FDC current use of anticoagulant Multinodular goiter Obesity (BMI 30-39.9) PAF (paroxysmal atrial fibrillation) Persistent atrial fibrillation Refractive amblyopia Type 2 diabetes mellitus with hyperglycemia Surgical History Hx of hernia repair S/P fine needle aspiration Family History Father CVD (cardiovascular disease) Myocardial infarction Mother Hypertension Social History Housing: House Patient Tobacco Use Status: Never used Tobacco e-Cigarette/Vaping Use: Never Used Second Hand Smoke Exposure: No Current occupational status: retired Cognitive needs: No Hearing needs: No Vision needs: Yes Review of Systems Const All systems reviewed & are unremarkable except as noted in HPI and below Reports no additional complaints Resp Reports no additional complaints GI Reports no additional complaints Reports as per HPI Musc Reports no additional complaints Physical Exam Telemedicine evaluation Appropriate responses Regular breathing rate and rhythm HEENT Head: Yes normal to inspection Ears: hearing grossly normal bilaterally Eyes General: appearance normal, both eyes and all related structures Neck Neck: Yes normal visual inspection Chest Chest palpation & inspection: normal inspection of the chest Resp Effort & Inspection: normal respiratory effort and able to speak in complete sentences Assessment & Plan Assessment & Plan (1) BPH w urinary obs/LUTS: Code(s): N40.1 - Benign prostatic hyperplasia with lower urinary tract symptoms; N13.8 - Other obstructive and reflux uropathy (2) Elevated PSA: Code(s): R97.20 - Elevated prostate specific antigen [PSA] Plan Twelve month follow-up Orders: Orders Prostate Specific Antigen 364 Days R97.20 - Elevated prostate specific antigen [PSA] Patient Instructions: Imaging studies, laboratory and physical exam results were discussed and reviewed in detail. No major barriers to patient understanding were identified. An opportunity to ask questions regarding the treatment plan was provided. All questions were answered. The patient expressed understanding and agreement with the above treatment plan. The patient is aware they should contact our office by phone for worsening of their current condition or the appearance of new urologic symptoms. Compliance is encouraged with any medications and followup testing that is ordered. It is a privilege to participate in the urologic care of your patient. If you have any questions or concerns regarding treatment for the above conditions, or other urologic issues, please do not hesitate to contact me. The office telephone contact is [phone]. This note is constructed using voice recognition software. While every effort has been made to ensure accuracy deckhand fishing vessel errors may have been included. Yours sincerely, Dr Carlos Walker MD, [facility] - Urology Providers of Expert, Compassionate Care for the Genitourinary System Telehealth Telehealth Location of provider rendering services: practice address Location of patient: address on file Patient Identification confirmed using: Name, : Yes Telehealth method: video Patient verbally consented to treatment: Yes Patient verbally consented to billing insurance company: Yes Patient informed of any privacy concerns related to visit: Yes Coding Level of Care Code Tele Est Pt Level 3 (25346) Diagnoses BPH w urinary obs/LUTS N40.1; N13.8 Elevated PSA R97.20
== END 2023-04-11 11:18 | disposition home or self-care (01) ==
LOC: HO.HUSH 09:41
PROVIDERS: PCP Internal Medicine; Visit Provider Urology
DX: N40.1 Benign prostatic hyperplasia with lower urinary tract symptoms (principal); N13.8 Other obstructive and reflux uropathy; R97.20 Elevated prostate specific antigen [PSA]
CPT/HCPCS: 99213

== ENCOUNTER → 2023-04-11 09:41 | Outpatient (BNVA) | payer MEDICARE, OTHER, SELFPAY | PROVIDERS: PCP Internal Medicine; Visit Provider Urology | DX: N40.1 Benign prostatic hyperplasia with lower urinary tract symptoms (principal); N13.8 Other obstructive and reflux uropathy; R97.20 Elevated prostate specific antigen [PSA]; Z79.899 Other long term (current) drug therapy | CPT/HCPCS: Q3014 ==

== ENCOUNTER 2023-07-31 15:15 | Outpatient (AMB) | payer MEDICARE, OTHER, SELFPAY ==
[2023-07-31 15:33] VITALS: BP 132/80; PULSE 85; O2SAT 99; BMI 31.8
--- NOTE | 2023-07-31 15:33 | A.OFFPC_ITS ---
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 Accompanied by: Self / Same As Patient Allergies sulfamethoxazole [From Sulfamethoxazole-Trimethoprim] Allergy (Intermediate, Verified 07/31/23 15:40) hives trimethoprim [From Sulfamethoxazole-Trimethoprim] Allergy (Intermediate, Verified 07/31/23 15:40) hives cephalexin [Keflex] Allergy (Unknown, Verified 07/31/23 15:40) unknown penicillin V Adverse Reaction (Unknown, Verified 07/31/23 15:40) shivering Tobacco use date assessed: 12/05/22 HPI DM HPI Details 73-year-old obese male with diabetes kerwin litus BPH with an elevated PSA hypercholesterolemia atrial fibrillation and hypertension last seen in February 2023. Cologuard test August 07-patient follows up with urology had [employer] thinned March 2023 stable on Flomax PSA is come down switching to finasteride PFSH Medical History Cardiomyopathy Colon cancer screening Diverticular disease Elevated PSA Essential hypertension Gout Hypercholesterolemia halfway current use of anticoagulant Multinodular goiter Obesity (BMI 30-39.9) PAF (paroxysmal atrial fibrillation) Persistent atrial fibrillation Refractive amblyopia Type 2 diabetes mellitus with hyperglycemia Surgical History Hx of hernia repair S/P fine needle aspiration Family History Father CVD (cardiovascular disease) Myocardial infarction Mother Hypertension Social History Housing: House Patient Tobacco Use Status: Never used Tobacco e-Cigarette/Vaping Use: Never Used Second Hand Smoke Exposure: No Current occupational status: retired Cognitive needs: No Hearing needs: No Vision needs: Yes Questionnaire Thrive Questionnaire Date Thrive assessed: 12/05/22 RIVERA-7 AMB Questionnaire RIVERA-7 Date RIVERA - 7 assessed: 12/05/22 Source: Developed by Drs. Neil L. DomitilaAnni luciano, Rodolfo Sosa and colleagues, with an educational sami from [employer]. Physical exam (Primary Care) Vital Signs: Last Vital Signs Pulse 85 07/31/23 15:33 BP 132/80 07/31/23 15:33 Pulse Ox 99 07/31/23 15:33 Oxygen Delivery Method Room Air 07/31/23 15:33 BMI result Body Mass Index 31.8 Tobacco/Smoking Status: Tobacco use Status Tobacco use date assessed 12/05/22 07/31/23 15:35 Patient Tobacco Use Status Never used Tobacco 07/31/23 15:35 e-Cigarette/Vaping Use Never Used 07/31/23 15:35 Thrive Assessment: Date of Thrive Assessment Date Thrive assessed 12/05/22 07/31/23 15:35 Const General: alert; No acute distress Eyes Conjunctivae: conjunctivae normal Resp Auscultation: clear to auscultation bilaterally Cardio Rate: regular rate Rhythm: regular rhythm GI Inspection: Yes normal to inspection Extrem General: Yes normal to inspection and No edema Results AMB Hemoglobin A1c AMB Hemoglobin A1c 8.0 % Last Edit by LISBET Barber on 07/31/23 15:44 Results Reviewed Results Reviewed: Laboratory Last Values Hgb A1c (Clinic) 8.0 % (4.0-6.0) H 07/31/23 15:43 Assessment and Plan Assessment & Plan (1) Type 2 diabetes mellitus with hyperglycemia: Comment: DR. Kang, DR. Hoskins 12/2022- Code(s): E11.65 - Type 2 diabetes mellitus with hyperglycemia Plan: Decrease the amount of carbohydrate intake, pasta, bread, rice and potatoes are all sugar and that is aside from all the sweet stuff, remember that fruits are good but they are Sweet also. Hemoglobin A1c goal of less than 7.0. Patient is on glyburide and metformin (2) Obesity (BMI 30-39.9): Code(s): E66.9 - Obesity, unspecified Plan: Diet and exercise (3) Persistent atrial fibrillation: Code(s): I48.19 - Other persistent atrial fibrillation Plan: Continue with anticoagulation with Xarelto continue to follow-up with renal function (4) Essential hypertension: Code(s): I10 - Essential (primary) hypertension Plan: Continue with blood pressure medication. Decrease salt intake and exercise patient is taking lisinopril 40 mg once a day hydrochlorothiazide 25 mg once a day and carvedilol (5) Hypercholesterolemia: Code(s): E78.00 - Pure hypercholesterolemia, unspecified Plan: Avoid fried foods, chicken skin, eggs, butter margarine, pastries and meat. Be it pork or beef they have a lot of cholesterol LDL goal of less than 103rd triglyceride of less than 150 patient takes Zetia and simvastatin (6) Elevated PSA: Code(s): R97.20 - Elevated prostate specific antigen [PSA] Plan: Patient continues to follow-up with urology and PSA being monitored Orders: Orders AMB Hemoglobin A1c Today E11.65 - Type 2 diabetes mellitus with hyperglycemia Comprehensive Met. Panel Today E11.65 - Type 2 diabetes mellitus with hyperglycemia Coding Level of Care Code Est Pt Level 4 (26363) Diagnoses Type 2 diabetes mellitus with hyperglycemia E11.65 Obesity (BMI 30-39.9) E66.9 Persistent atrial fibrillation I48.19 Essential hypertension I10 Hypercholesterolemia E78.00 Elevated PSA R97.20
== END 2023-07-31 16:31 | disposition home or self-care (01) ==
PROVIDERS: PCP Internal Medicine; Visit Provider Internal Medicine
DX: E11.65 Type 2 diabetes mellitus with hyperglycemia (principal)
CPT/HCPCS: 83036; 99214

== ENCOUNTER → 2023-12-29 12:53 | Outpatient (REF) | payer MEDICARE, OTHER, SELFPAY ==
--- NOTE | 2023-12-29 12:57 | HM_ITS ---
Conclusion: 1. Patient was monitored for total period of 2 days and 20 hours 2. Baseline was atrial fibrillation with average heart rate of 89 beats per minute with adequate rate control 3. No significant pauses noted 4. Frequent wide complex is noted that could represent PVCs with total burden of 4.1%, could also represent aberrant conduction especially 4 beat run of nonsustained VT is suggestive of aberrant conduction. 5. No patient reported events MTDD
--- NOTE | 2023-12-29 12:57 | CA_ITS ---
Transthoracic Echocardiogram Patient (Last, First, Middle): Isaiah Dover F Gender: Male Date of : 1950 Age: 73 Procedure Date: 12/29/2023 Procedure Type: Transthoracic Echocardiogram Location: OP Height: 193.04 cm Weight: 117.94 kg BSA: 2.48 m2 Heart Rate: bpm BP: 128 / 84 mmHg Sand Buffer: SKYE Referring MD: Zay Laguna MD Symptoms: I48.19 - Other persistent atrial fibrillation Study Quality: Fair Conclusions: - Normal left ventricular cavity size. There is mildly increased left ventricular wall thickness. The left ventricular systolic function is low normal. The visually estimated ejection fraction is between 50-55%. - The basal inferior segment is akinetic. - Normal right ventricular cavity size. There is low normal right ventricular systolic function. - Mildly elevated right atrial pressure. Mild pulmonary hypertension is present. - There is mild dilatation of the ascending aorta measuring 3.50 cm. Findings Left Ventricle Normal left ventricular cavity size. There is mildly increased left ventricular wall thickness. The left ventricular systolic function is low normal. The visually estimated ejection fraction is between 50-55%. There is evidence of regional wall motion abnormalities. Diastolic function is indeterminate on the basis of available data. Wall Motion Rest Echo Findings The basal inferior segment is akinetic. Right Ventricle Normal right ventricular cavity size. There is low normal right ventricular systolic function. Atria The left atrium is mildly dilated. The right atrium is mildly dilated. Aortic Valve There is a normal trileaflet aortic valve. There is mild aortic valve stenosis. There is no aortic valve regurgitation. Mitral Valve Normal mitral valve structure and function. There is trace mitral valve regurgitation. There is no mitral valve stenosis. Pulmonic Valve The pulmonic valve is normal. There is trace pulmonic valve regurgitation. Tricuspid Valve Normal tricuspid valve structure. There is trace tricuspid valve regurgitation. Mildly elevated right atrial pressure. Mild pulmonary hypertension is present. Great Vessels There is mild dilatation of the ascending aorta measuring 3.50 cm. The visualized portions of the pulmonary artery and branches are normal. Venous The inferior vena cava is dilated and collapses greater than 50% with inspiration. Pericardium/Pleural There is no evidence of pericardial effusion. Prior Study Comparison Changes noted compared to prior study dated: 12/17/2021. EF 50-55, basal inferior akinesis, low normal RV function. Measurements 2D Linear Measurements IVSd: 1.10 0.6-0.9/0.6-1.0 cm LVIDd: 5.07 3.9-5.3/4.2-5.9 cm LVIDd Index: 2.04 2.4-3.2/2.2-3.1 cm/m2 LVIDs: 3.87 2.0-3.6 cm LVPWd: 1.11 0.7-1.1 cm Ao Root: 3.60 2.1-3.5 cm LA Diam: 4.70 2.7-3.8/3.0-4.0 cm LAIDs Index: 1.90 1.5-2.3 cm/m2 LV Mass: 265.72 67-162/88-224 g LV Mass Index: 107.15 43-95/49-115 g/m2 LVOT Diam: 2.50 3.0+(-)1.3 cm 2D Systolic Function EF 4C: 40.50 >55% EF 2C: 41.90 >55% EF BiP: 41.60 >55% Aortic Valve AoV Pk James: 1.36 AoV Mn James: 1.04 AoV VTI: 0.28 AoV Pk Grad: 7.00 Aov Mn Grad: 5.00 JOSEPHINE Cont.VTI: 2.65 LVOT LVOT Pk James: 0.74 LVOT Mn James: 0.55 LVOT VTI: 0.15 LVOT Pk Grad: 2.00 LVOT Mn Grad: 1.00 LVOT Diam: 2.50 LVOT Area: 4.91 Right Ventricle TAPSE (mm): 20.90 TVS' James: 9.57 Tricuspid Valve TR Pk James: 2.88 TR Pk Grad: 33.00 RA Press: 8.00 RVSP: 41.00 Great Vessels Aorta Ao Root-2D: 3.60 2.0-3.7 cm Ao Asc: 3.50 2.1-3.4 cm Ao Arch: 3.10 Updated in Other Vendor System with Status of Final Russell Jernigan MD electronically signed on 12/30/2023 9:14:48 PM with status of Final
[2023-12-29 15:50] LABS: Alanine Aminotransferase 16 U/L (0-40); Alkaline Phosphatase 70 U/L (39-117); Anion Gap 13 (12-20); Aspartate Amino Transferase 14 U/L (5-37); Bilirubin Total 0.6 mg/dL (0.0-1.0); Blood Urea Nitrogen 31 mg/dL (9-16); Calcium 9.2 mg/dL (8.4-10.2); Carbon Dioxide 25 mmol/L (22-29); Chloride 101 mmol/L (96-108); Estimated Glomerular Filt Rate 51; Glucose Random 317 mg/dL (60-115); Potassium 4.2 mmol/L (3.3-5.1); Sodium 135 mmol/L (135-145); Total Protein 7.2 g/dL (6.5-8.0)
== END ==
LOC: HO.CARD 12:53
PROVIDERS: PCP Internal Medicine; Visit Provider Internal Medicine
DX: I48.19 Other persistent atrial fibrillation (principal); E11.65 Type 2 diabetes mellitus with hyperglycemia
CPT/HCPCS: 36415; 80053; 93242; 93306

== ENCOUNTER → 2023-12-29 12:57 | Outpatient (BNV) | payer MEDICARE, OTHER, SELFPAY | PROVIDERS: PCP Internal Medicine; Visit Provider Internal Medicine Cardiovascular Disease | DX: I48.91 Unspecified atrial fibrillation (principal) | CPT/HCPCS: 93244; 93306 ==

== ENCOUNTER → 2024-01-08 12:09 | Outpatient (BNVA) | payer MEDICARE, OTHER, SELFPAY | PROVIDERS: PCP Internal Medicine; Visit Provider Internal Medicine | DX: I48.19 Other persistent atrial fibrillation (principal); I42.9 Cardiomyopathy, unspecified; I49.3 Ventricular premature depolarization; R06.83 Snoring; E66.01 Morbid (severe) obesity due to excess calories; Z68.31 Body mass index [BMI] 31.0-31.9, adult | CPT/HCPCS: 93005; 99212 ==

== ENCOUNTER 2024-01-08 12:11 | Outpatient (AMB) | payer MEDICARE, OTHER, SELFPAY ==
[2024-01-08 12:31] VITALS: BP 128/70; PULSE 86; O2SAT 97; BMI 31.8
--- NOTE | 2024-01-08 12:31 | A.OFFVIS_ITS ---
Vital Signs 01/08/24 12:31 Height 6 ft 4 in Weight 261 lb BMI 31.8 BP 128/70 Blood Pressure Location Lt brachial Position Sitting Pulse 86 Pulse Source Monitor Pulse Oximetry (%) 97 Oxygen Delivery Method Room Air Intake Visit Reasons: 1 yr f/up s/p holter and echo Allergies sulfamethoxazole [From Sulfamethoxazole-Trimethoprim] Allergy (Intermediate, Verified 07/31/23 15:40) hives trimethoprim [From Sulfamethoxazole-Trimethoprim] Allergy (Intermediate, Verified 07/31/23 15:40) hives cephalexin [Keflex] Allergy (Unknown, Verified 07/31/23 15:40) unknown penicillin V Adverse Reaction (Unknown, Verified 07/31/23 15:40) shivering Medication List - Last Reconciled 01/08/24 by Zay Laguna MD allopurinol 100 mg PO DAILY carvedilol 12.5 mg PO BID carvedilol 6.25 mg PO BID doxycycline hyclate 100 mg PO BID ezetimibe 10 mg PO DAILY finasteride 5 mg PO DAILY 90 days glyburide Take 1 tablet in the morning and half a tablet in the evening PO; 90 days hydrochlorothiazide 25 mg PO DAILY lisinopril 40 mg PO DAILY metformin 1,000 mg (2 x 500 mg) PO BID rivaroxaban (Xarelto) 20 mg PO BEDTIME simvastatin 20 mg PO BEDTIME tamsulosin 0.4 mg PO DAILY 90 days HPI Comments Details: Isaiah returns for follow-up regarding atrial fibrillation as well as cardiomyopathy. To recall, in 2014, he was admitted for shortness of breath and found to be in atrial fibrillation. Echocardiogram then revealed markedly diminished LVEF. Then underwent successful cardioversion and was also put on Xarelto. However, the last few years, he has been back in atrial fibrillation. He is maintained rather on rate control only per his own preference. He is active with absolutely no limitations. He states that he was even going up and down 3 flights of stairs with no issues. FORMERLY [facility], [facility] Medical History Cardiomyopathy Colon cancer screening Diverticular disease Elevated PSA Essential hypertension Gout Hypercholesterolemia group home current use of anticoagulant Multinodular goiter Obesity (BMI 30-39.9) PAF (paroxysmal atrial fibrillation) Persistent atrial fibrillation Refractive amblyopia Type 2 diabetes mellitus with hyperglycemia Surgical History Hx of hernia repair S/P fine needle aspiration Family History Father CVD (cardiovascular disease) Myocardial infarction Mother Hypertension Social History Housing: House Patient Tobacco Use Status: Never used Tobacco e-Cigarette/Vaping Use: Never Used Second Hand Smoke Exposure: No Current occupational status: retired Cognitive needs: No Hearing needs: No Vision needs: Yes Review of Systems Const Denies weakness ENT Denies dizziness Card Denies chest pain, Denies chest pain with activity, Denies syncope, Denies rapid heart rate, Denies pedal edema, Denies edema, Denies leg edema, Denies lightheadedness, Denies palpitations, Denies dyspnea, Denies dyspnea on exertion and Denies orthopnea Resp Denies cough, Denies dyspnea and Denies dyspnea on exertion GI Denies hematochezia and Denies change in stool character Musc Denies abnormal gait, Denies muscle cramps, Denies muscle weakness, Denies numbness, Denies radiating pain into limb and Denies tingling Neuro Denies abnormal gait, Denies dizziness, Denies syncope, Denies numbness, Denies tingling and Denies weakness Endo Denies palpitations Physical Exam Vital Signs: Last Vital Signs Pulse 86 01/08/24 12:31 BP 128/70 01/08/24 12:31 Pulse Ox 97 01/08/24 12:31 Oxygen Delivery Method Room Air 01/08/24 12:31 BMI result Body Mass Index 31.8 Const General: comfortable and no acute distress Orientation/consciousness: patient oriented x3 HEENT Other: Unremarkable Head: Yes normal to inspection Neck Neck: Yes normal visual inspection Chest Chest palpation & inspection: normal inspection of the chest Resp Auscultation: clear to auscultation bilaterally Cardio Palpation: normal PMI Heart sounds: S1 normal heart sound present, S2 normal heart sound present, no gallops, no murmurs and no rubs GI Palpation (GI): Soft to palpation Back/Spine/Pelvis Other: unremarkable Skin General skin exam: no rashes or lesions noted Neuro General: patient oriented x3 Extrem General: Yes normal to inspection Psych Mental Status: mental status grossly normal Office Procedures EKG Details: EKG with atrial fibrillation rate of 86/Min; T inversions in inferior leads. Similar to prior EKG. [id number], Complete Assessment & Plan Assessment & Plan (1) Persistent atrial fibrillation: Code(s): I48.19 - Other persistent atrial fibrillation Category: Medical Plan: In the Holter, underlying atrial fibrillation rapid rate of 89/Min. Thought to be adequately controlled. There are some rapid rates but he states that at that time, he was going up 3 flights of stairs. Continue beta-blockers and anticoagulation without changes. Cardioversion has been discussed many times but per his own preference, under rate control only. (2) Cardiomyopathy: Code(s): I42.9 - Cardiomyopathy, unspecified Category: Medical Qualifiers: Cardiomyopathy type: other Qualified Code(s): I42.8 - Other cardiomyopathies Plan: Most recently, LVEF is 50-55%. Basal inferior segment thought to be akinetic. Really does not have any clear-cut symptoms for any coronary disease or cardiomyopathy. Can get exercise stress perfusion imaging for further evaluation. (3) PVC (premature ventricular contraction): Code(s): I49.3 - Ventricular premature depolarization Category: Medical Plan: In the Holter, PVC burden was about 4.1%. Could not exclude aberrant conduction. Obtain exercise stress perfusion imaging as above. Continue beta-blockers. (4) Snoring: Code(s): R06.83 - Snoring Category: Medical Plan: Sleep study was completed and there is no evidence of any obstructive sleep apnea but he had continuous snoring. Recommended weight loss, as much able. (5) Morbid obesity due to excess calories: Code(s): E66.01 - Morbid (severe) obesity due to excess calories Category: Medical Plan: His weight does contribute to lot of issues but has not really changed much any years. This may be his long-term weight. Orders: Orders CA stress test Today R07.2 - Precordial pain NM cardiolite stress test Today R07.2 - Precordial pain
== END 2024-01-08 12:54 | disposition home or self-care (01) ==
PROVIDERS: PCP Internal Medicine; Visit Provider Internal Medicine
DX: I48.19 Other persistent atrial fibrillation (principal); I42.8 Other cardiomyopathies; I49.3 Ventricular premature depolarization; R06.83 Snoring; E66.01 Morbid (severe) obesity due to excess calories
CPT/HCPCS: 93010; 99214

== ENCOUNTER 2024-02-07 13:54 | Outpatient (AMB) | payer MEDICARE, OTHER, SELFPAY ==
--- NOTE | 2024-02-07 13:57 | MHC.OFFVIS ---
Vital Signs 02/07/24 13:58 Height 6 ft 4 in Weight 266 lb 12.149 oz BMI 32.5 BP 108/62 Blood Pressure Location Lt brachial Position Sitting Pulse 85 Pulse Source Pulse Oximeter Intake Visit Reasons: f/u MNG-LVM Intake Note: Patient present today for MNG follow up visit. 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 by: Self / Same As Patient Allergies sulfamethoxazole [From Sulfamethoxazole-Trimethoprim] Allergy (Intermediate, Verified 02/07/24 14:03) hives trimethoprim [From Sulfamethoxazole-Trimethoprim] Allergy (Intermediate, Verified 02/07/24 14:03) hives cephalexin [Keflex] Allergy (Unknown, Verified 02/07/24 14:03) unknown penicillin V Adverse Reaction (Unknown, Verified 02/07/24 14:03) shivering Medication List - Last Reconciled 02/07/24 by Neil Barrios MD allopurinol 100 mg PO DAILY carvedilol 12.5 mg PO BID carvedilol 6.25 mg PO BID doxycycline hyclate 100 mg PO BID ezetimibe 10 mg PO DAILY finasteride 5 mg PO DAILY 90 days glyburide Take 1 tablet in the morning and half a tablet in the evening PO; 90 days hydrochlorothiazide 25 mg PO DAILY lisinopril 40 mg PO DAILY metformin 1,000 mg (2 x 500 mg) PO BID rivaroxaban (Xarelto) 20 mg PO BEDTIME simvastatin 20 mg PO BEDTIME tamsulosin 0.4 mg PO DAILY 90 days HPI Comments Details: 72 yo male today for fup visit non toxic multinodular goiter. Today for interval fup nodules. His feeling well, he has no complaints. He had FNA on 06/15/17 of Right upper nodule 2.5 x 1.6 x 1.9 cm consistent with benign follicular nodule , [place] category II. Right lower pole nodule 2.0 x 1.8 x 1.9 cm consistent with benign follicular nodule , [place] category II., Left upper nodule 1.3 x 1. 2 x 1.1 cm consistent with benign follicular nodule , [place] category II. 02/09/17 TSH 0.27 MIU/ML, T4 6.3 mcg/l 02/03/17 TSH 0.31 MIU/ML, T4 6.3 mcg/ml Trended TSH 2003 to 2015 0.61 to 1.01 MYLES/ML The patient has history of AFib on antiarrhythmia medications. Denies cold or heat intolerance, stable weight loss , denies diarrhea, denies insomnia, fatigue, sweating, dysphagia, dyspnea, dysphonia, tremors, palpitations, irritability, anxiety, eye dryness, eye pain, excessive lacrimation, neck pain, recent infection, diplopia. Patient was on Amiodarone 400 mg a day. Stopped on September 2016 He denies any obstructive symptoms. He denies any symptoms of hypothyroidism or hyperthyroidism US thyroid 07/09/2020 Right Thyroid Lobe: 4.8 x 2.0 x 2.9 cm, volume 14.6 mL. Previously 5.0 x 3.0 x 2.8 cm, volume 21.3 mL. Parenchyma: The gland echotexture is heterogeneous. Thyroid vascularity is normal. Left Thyroid Lobe: 5.0 x 1.6 x 2.1 cm, volume 8.8 mL. Previously 5.4 x 1.8 x 2.2 cm, volume 11.3 mL. Parenchyma: The gland echotexture is heterogeneous. Thyroid vascularity is normal. Isthmus: 0.5 cm in maximum AP dimension. Previously 0.5 cm. RIGHT THYROID LOBE: There are 2 nodules seen. 1. Location: Mid pole. Size: 2.7 x 1.8 x 2.0 cm. Previous: 3.0 x 2.0 x 2.0 cm. Nodule characteristics: Heterogeneous nearly isoechoic with fine hypoechoic halo, smooth margin, no significant color flow. 2. Location: Lower pole. Size: 1.1 x 0.9 x 1.3 cm. Previous: 1.0 x 0.8 x 1.1 cm. Nodule characteristics: Moderate hypoechoic, ill-defined margin, no color flow. ISTHMUS: No nodules. LEFT THYROID LOBE: There is 1 nodule seen. 1. Location: Lower pole. Size: 0.7 x 0.5 x 0.7 cm. Previous: 0.8 x 0.7 x 0.6 cm. Nodule characteristics: Moderate hypoechoic, smooth margin, and no color flow NODES: No lymphadenopathy is seen in the tissue surrounding the thyroid gland. Recent ultrasound shows stability in the size of the nodules Laboratory Tests 05/24/19 03/13/20 07:40 07:40 Free T4 0.99 Thyroxine (T4) 6.8 TSH 3rd Generation 0.78 PFSH Medical History Cardiomyopathy Colon cancer screening Diverticular disease Elevated PSA Essential hypertension Gout Hypercholesterolemia half-way current use of anticoagulant Multinodular goiter Obesity (BMI 30-39.9) PAF (paroxysmal atrial fibrillation) Persistent atrial fibrillation Refractive amblyopia Type 2 diabetes mellitus with hyperglycemia Surgical History S/P fine needle aspiration Hx of hernia repair Family History Father CVD (cardiovascular disease) Myocardial infarction Mother Hypertension Social History Housing: House Patient Tobacco Use Status: Never used Tobacco e-Cigarette/Vaping Use: Never Used Second Hand Smoke Exposure: No Current occupational status: retired Cognitive needs: No Hearing needs: No Vision needs: Yes Physical Exam Vital Signs: Last Vital Signs Pulse 85 02/07/24 13:58 BP 108/62 02/07/24 13:58 BMI result Body Mass Index 32.5 Const Other: Thyroid gland slightly larger size weighs by 20 g. The no thyroid nodules palpated. Assessment & Plan Assessment & Plan (1) Multinodular goiter: Comment: Biopsy 2017 benign Code(s): E04.2 - Nontoxic multinodular goiter Category: Medical Plan: This is a 73-year-old white male with a history of multinodular goiter status post FNA right upper pole a left upper pole nodule with benign cytology in past. He appears to be clinically and biochemically euthyroid. Recent ultrasound shows stability in the size of the nodules Plan is to recheck TSH and free T4. Assuming above is normal, patient can follow up with his primary care provider who can reorder thyroid ultrasound about 1 year's time. If there is any change in the size or characteristics of the nodules, the patient returned back to endocrinology Orders: Orders Free T4 (Free Thyroxine) Today E04.2 - Nontoxic multinodular goiter Thyroid Stimulating Hormone Today E04.2 - Nontoxic multinodular goiter Coding Level of Care Code Est Pt Level 3 (10823) Diagnoses Multinodular goiter E04.2
[2024-02-07 13:58] VITALS: BP 108/62; PULSE 85; BMI 32.5
== END 2024-02-07 14:18 | disposition home or self-care (01) ==
LOC: HO.ENCR 13:54
PROVIDERS: PCP Internal Medicine; Visit Provider Internal Medicine Endocrinology, Diabetes & Metabolism
DX: E04.2 Nontoxic multinodular goiter (principal)
CPT/HCPCS: 99213

== ENCOUNTER → 2024-02-07 13:54 | Outpatient (BNVA) | payer MEDICARE, OTHER, SELFPAY | PROVIDERS: PCP Internal Medicine; Visit Provider Internal Medicine Endocrinology, Diabetes & Metabolism | DX: E04.2 Nontoxic multinodular goiter (principal) | CPT/HCPCS: 99212 ==

== ENCOUNTER → 2024-02-13 09:57 | Outpatient (REF) | payer MEDICARE, OTHER, SELFPAY ==
--- NOTE | ~2024-02-13 | NM_ITS ---
Lexiscan Myocardial perfusion study Indication: Coronary artery disease, assess for ischemia Technique: The patient was brought in for a Lexiscan perfusion study on 02/13/2024 and was injected 0.4 mg of Lexiscan intravenously. Within a minute of this injection 40 mCi of sestamibi was given intravenously. Images were obtained using the SPECT gamma camera interlaced with the gating device. Images were obtained in supine position. Resting perfusion study was performed on 02/14/2024. Patient was administered 40 mCi of sestamibi intravenously at rest. Images were then obtained in supine position. Images were processed with the software and compared side to side in short axis, horizontal long axis and vertical long axis views. Total DLP 113mGy-cm. Findings: Raw acquisition reviewed. The stress perfusion study showed diminished tracer uptake along the inferior wall. There is improvement with CT attenuation correction suggestive of diaphragmatic attenuation artifact. The gated study shows mildly diminished left ventricular systolic function with calculated LVEF of 44%. LV cavity is normal in size. The gated study shows inferior hypokinesis as well as in the basal inferolateral wall. Resting study shows mildly diminished tracer uptake along the inferior wall. There is improvement with CT attenuation correction suggestive of diaphragmatic attenuation artifact. Gating at rest reveals reduced inferior wall contractility with ejection fraction of 50%. The findings are consistent with fixed inferior wall perfusion defect, but also with improvement during CT attenuation correction. NM/NM cardiolite stress test Impression: 1. Myocardial perfusion imaging study shows probably nontransmural infarct along the inferior wall/basal inferolateral wall. 2. Gated LVEF is 44% during stress and 50% during rest. 3. Transient ischemic dilatation not present. EKG component of the test reported separately.
--- NOTE | 2024-02-13 09:59 | CA_ITS ---
Acquisition Time: 2024-02-13 10:19:19 Total Exercise Time: 00:02:15 Test Indications: AFIB Medications: SEE H Protocol: MARIE Max HR: 136 BPM 92% of Pred: 147 BPM Max BP: 140/088 mmHG Max Work Load: 1.0 METS Pharmacological stress test with Lexiscan injection while sitting without anginal symptoms, without arrhythmias, with normotensive response to injection, with nondiagnoisitic EKGs. Aminophylline 75mg IVP given to reverse Lexiscan. Nuclear images pending. Test reviewed with Dr. Laguna. Referred By: Zay Laguna Overread By: Rosanna Ma
== END ==
LOC: HO.CARD 09:57
PROVIDERS: PCP Internal Medicine; Visit Provider Internal Medicine
DX: R07.2 Precordial pain (principal)
CPT/HCPCS: 78452; 93017; A9500; J0280; J2785

== ENCOUNTER → 2024-02-13 09:59 | Outpatient (BNV) | payer MEDICARE, OTHER, SELFPAY | PROVIDERS: PCP Internal Medicine; Visit Provider Nurse Practitioner | DX: I25.10 Atherosclerotic heart disease of native coronary artery without angina pectoris (principal) | CPT/HCPCS: 78452; 93016; 93018 ==

== ENCOUNTER 2024-04-11 10:18 | Outpatient (AMB) | payer MEDICARE, OTHER, SELFPAY ==
--- NOTE | 2024-04-11 10:36 | A.OFFVIS_ITS ---
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 Required: No Allergies sulfamethoxazole [From Sulfamethoxazole-Trimethoprim] Allergy (Intermediate, Verified 04/11/24 10:36) hives trimethoprim [From Sulfamethoxazole-Trimethoprim] Allergy (Intermediate, Verified 04/11/24 10:36) hives cephalexin [Keflex] Allergy (Unknown, Verified 04/11/24 10:36) unknown penicillin V Adverse Reaction (Unknown, Verified 04/11/24 10:36) shivering Medication List - Last Reconciled 04/11/24 by Carlos Walker MD allopurinol 100 mg PO DAILY carvedilol 12.5 mg PO BID carvedilol 6.25 mg PO BID doxycycline hyclate 100 mg PO BID ezetimibe 10 mg PO DAILY finasteride 5 mg PO DAILY 90 days glyburide Take 1 tablet in the morning and half a tablet in the evening PO; 90 days hydrochlorothiazide 25 mg PO DAILY lisinopril 40 mg PO DAILY metformin 1,000 mg (2 x 500 mg) PO BID rivaroxaban (Xarelto) 20 mg PO BEDTIME simvastatin 20 mg PO BEDTIME tamsulosin 0.4 mg PO DAILY 90 days HPI Comments Details: Isaiah is a pleasant male. He is a patient of Dr. Gerard. 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 Elevated PSA/LUTS PSA has been variable ranging from 3.0-4.6 03/07 3.0, 03/08 3.8, 04/08 5.3, 10/10 1.8, 04/09 1.3 Known BPH Medications Flomax and finasteride Urinary stream and bladder emptying parameters remained stable Will continue with Flomax Will check PSA in 6 months has 2019 renal cancer diagnosis [facility] Medical History Cardiomyopathy Colon cancer screening Diverticular disease Elevated PSA Essential hypertension Gout Hypercholesterolemia [facility] current use of anticoagulant Multinodular goiter Obesity (BMI 30-39.9) PAF (paroxysmal atrial fibrillation) Persistent atrial fibrillation Refractive amblyopia Type 2 diabetes mellitus with hyperglycemia Surgical History S/P fine needle aspiration Hx of hernia repair Family History Father CVD (cardiovascular disease) Myocardial infarction Mother Hypertension Social History Housing: House Patient Tobacco Use Status: Never used Tobacco e-Cigarette/Vaping Use: Never Used Second Hand Smoke Exposure: No Current occupational status: retired Cognitive needs: No Hearing needs: No Vision needs: Yes Review of Systems Const Denies chills and Denies fever(s) Card Reports no additional complaints and Denies syncope Resp Denies cough GI Denies abdominal pain and Denies heartburn Reports as per HPI and Denies change in libido Neuro Denies syncope Psych Denies change in libido Endo Denies change in libido Physical Exam Const General: cooperative, healthy appearing, comfortable and no acute distress Orientation/consciousness: patient oriented x3 HEENT Face and sinus: Yes normal facial exam Mouth: moist mucous membranes Neck Neck: Yes normal visual inspection, Yes full ROM and Yes trachea midline Chest Chest palpation & inspection: normal inspection of the chest Resp Effort & Inspection: normal respiratory effort, able to speak in complete sent ences and no respiratory distress GI Inspection: Yes normal to inspection Back/Spine/Pelvis Cervical Spine: normal cervical lordosis Thoracic/Lumbar Spine: thoracic and lumbar spine normal to inspection Skin General skin exam: no rashes or lesions noted Neuro General: patient oriented x3, gait normal, tone normal and moves all extremities Extrem General: Yes normal to inspection and Yes capillary refill normal Assessment & Plan Assessment & Plan (1) BPH w urinary obs/LUTS: Code(s): N40.1 - Benign prostatic hyperplasia with lower urinary tract symptoms; N13.8 - Other obstructive and reflux uropathy Category: Medical (2) Orchitis and epididymitis: Code(s): N45.3 - Epididymo-orchitis Category: Medical Plan One year follow-up PSA Orders: Orders Prostate Specific Antigen 364 Days R97.20 - Elevated prostate specific antigen [PSA] Patient Instructions: Imaging studies, laboratory and physical exam results were discussed and reviewed in detail. No major barriers to patient understanding were identified. An opportunity to ask questions regarding the treatment plan was provided. All questions were answered. The patient expressed understanding and agreement with the above treatment plan. The patient is aware they should contact our office by phone for worsening of their current condition or the appearance of new urologic symptoms. Compliance is encouraged with any medications and followup testing that is ordered. It is a privilege to participate in the urologic care of your patient. If you have any questions or concerns regarding treatment for the above conditions, or other urologic issues, please do not hesitate to contact me. The office telephone contact is [phone]. This note is constructed using voice recognition software. While every effort has been made to ensure accuracy transportation planner errors may have been included. Yours sincerely, Dr Carlos Walker MD, [facility] - Urology Providers of Expert, Compassionate Care for the Genitourinary System Coding Level of Care Code Est Pt Level 4 (39004) Diagnoses BPH w urinary obs/LUTS N40.1; N13.8 Orchitis and epididymitis N45.3
== END 2024-04-11 11:03 | disposition home or self-care (01) ==
PROVIDERS: PCP Internal Medicine; Visit Provider Urology
DX: N40.1 Benign prostatic hyperplasia with lower urinary tract symptoms (principal); N13.8 Other obstructive and reflux uropathy; N45.3 Epididymo-orchitis
CPT/HCPCS: 99214

== ENCOUNTER → 2024-04-11 10:18 | Outpatient (BNVA) | payer MEDICARE, OTHER, SELFPAY | PROVIDERS: PCP Internal Medicine; Visit Provider Urology | DX: N40.1 Benign prostatic hyperplasia with lower urinary tract symptoms (principal); N13.8 Other obstructive and reflux uropathy; N45.3 Epididymo-orchitis | CPT/HCPCS: 99212 ==

== ENCOUNTER 2024-04-11 11:13 | Outpatient (REF) | payer MEDICARE, OTHER, SELFPAY ==
[2024-04-11 13:46] LABS: Free T4 (Free Thyroxine) 0.98 ng/dL (0.71-1.85); Thyroid Stimulating Hormone 0.66 uIU/mL (0.32-4.0)
== END 2024-04-11 11:14 | disposition home or self-care (01) ==
LOC: HO.10HDL 11:13
PROVIDERS: Visit Provider Internal Medicine Endocrinology, Diabetes & Metabolism
DX: E04.2 Nontoxic multinodular goiter (principal)
CPT/HCPCS: 36415; 84439; 84443

== ENCOUNTER 2024-06-03 16:54 | Outpatient (AMB) | payer MEDICARE, OTHER, SELFPAY ==
[2024-06-03 17:23] VITALS: BP 136/78; PULSE 100; O2SAT 98; BMI 31.1
--- NOTE | 2024-06-03 17:23 | A.OFFPC_ITS ---
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: No Accompanied by: Self / Same As Patient Allergies sulfamethoxazole [From Sulfamethoxazole-Trimethoprim] Allergy (Intermediate, Verified 06/03/24 17:24) hives trimethoprim [From Sulfamethoxazole-Trimethoprim] Allergy (Intermediate, Verified 06/03/24 17:24) hives cephalexin [Keflex] Allergy (Unknown, Verified 06/03/24 17:24) unknown penicillin V Adverse Reaction (Unknown, Verified 06/03/24 17:24) shivering Tobacco use date assessed: 06/03/24 Fall risk assessment: No Falls in past year Last assessed Fall Risk: 06/03/24 Dental Screening Dental Screen Date: 06/03/24 Did you have a dental visit in the last 12 months?: Yes Did you have a dental problem in the last 6 months where you did not have access to dental care?: No Was dental information given to patient?: Patient has dentist HPI DM Follow Up HPI Details 73-year-old obese male(noted 11 lb weigh t loss) with atrial fibrillation hypertension hypercholesterolemia coming in for follow-up. Noted to have an elevated PSA. Eye exam done March no diabetic retinopathy. Did see some cataracts. Patient has seen Urology also for the prostate number on tamsulosin and finasteride and continuing with surveillance. Patient had a Cardiolite stress test in January showing probably non transmural infarct along the inferior wall ejection fraction 44% during stress. Patient has also seen endocrinology for the multinodular goiter status post fine-needle aspiration biopsy of the right upper pole benign. Stopped flomax under urology. 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 Multinodular goiter Obesity (BMI 30-39.9) PAF (paroxysmal atrial fibrillation) Persistent atrial fibrillation Refractive amblyopia Type 2 diabetes mellitus with hyperglycemia Surgical History S/P fine needle aspiration Hx of hernia repair Family History Father CVD (cardiovascular disease) Myocardial infarction Mother Hypertension Social History Housing: House Patient Tobacco Use Status: Never used Tobacco e-Cigarette/Vaping Use: Never Used Second Hand Smoke Exposure: No Current occupational status: retired Cognitive needs: No Hearing needs: No Vision needs: Yes Questionnaire PHQ-9 Over the last 2 weeks, how often have you been bothered by any of the following problems? 1. Little interest or pleasure in doing things: not at all 2. Feeling down, depressed, or hopeless: not at all 3. Trouble falling or staying asleep, or sleeping too much: not at all 4. Feeling tired or having little energy: not at all 5. Poor appetite or overeating: not at all 6. Feeling bad about yourself - or that you are a failure or have let yourself or your family down: not at all 7. Trouble concentrating on things, such as reading the newspaper or watching television: not at all 8. Moving or speaking so slowly that other people could have noticed. Or the opposite - being so fidgety or restless that you have been moving around a lot more than usual: not at all 9. Thoughts that you would be better off or of hurting yourself in some way: not at all Total score: 0 Depression Screening Interpretation: Negative Depression Screening Done: Yes 46714 - PHQ-9 Billing: Yes Source: Developed by Drs. Neil Ramesh, Anni Richard, Rodolfo Sosa and colleagues, with an educational sami from [employer]. Thrive Questionnaire Date Thrive assessed: 06/03/24 I am a: Patient What is your living situation today?: I have a steady place to live Within the past 12 months, did the food you bought not last and you didn't have the money to get more?: Never true Within the past 12 months, did you worry whether your food would run out before you got money to buy more?: Never true Do you have trouble paying for medicines?: No Do you have trouble getting transportation to medical appointments?: No Do you have trouble paying your heating and electricity bill?: No Do you have trouble taking care of your child, family member or friend?: No Do you have trouble with day-to-day activities such as bathing, preparing meals, shopping, managing finances, etc.?: No Are you currently unemployed and looking for a job?: No Are you interested in more education?: No Please select the resources that you would like help with: None Currently or been in a relationship where the following occur: No concerns reported THRIVE Score: 0 AUDIT C Alcohol Use Questionnaire (AUDIT-C) 1. How often do you have a drink containing alcohol?: Never 3. How often do you have six or more drinks on one occasion?: Never Total Score: 0 RIVERA-7 AMB Questionnaire RIVERA-7 Date RIVERA - 7 assessed: 12/05/22 Source: Developed by Drs. Neil Ramesh, Anni Richard, Rodolfo Sosa and colleagues, with an educational sami from [employer]. Physical exam (Primary Care) Vital Signs: Last Vital Signs Pulse 100 06/03/24 17:23 BP 136/78 06/03/24 17:23 Pulse Ox 98 06/03/24 17:23 Oxygen Delivery Method Room Air 06/03/24 17:23 BMI result Body Mass Index 31.1 Tobacco/Smoking Status: Tobacco use Status Tobacco use date assessed 06/03/24 06/03/24 17:26 Patient Tobacco Use Status Never used Tobacco 06/03/24 17:26 e-Cigarette/Vaping Use Never Used 06/03/24 17:26 PHQ-9: PHQ-9 Score PHQ-9: Total score 0 06/03/24 17:26 Depression Screening Interpretation: Negative Thrive Assessment: Date of Thrive Assessment Date Thrive assessed 06/03/24 06/03/24 17:26 Currently or been in a relationship where the following occur: No concerns reported Const General: alert; No acute distress Eyes Conjunctivae: conjunctivae normal Resp Auscultation: clear to auscultation bilaterally Cardio Rate: regular rate Rhythm: regular rhythm GI Inspection: Yes normal to inspection Extrem General: Yes normal to inspection and No edema Results AMB Hemoglobin A1c AMB Hemoglobin A1c 8.4 % Last Edit by LISBET Barber on 06/03/24 17:48 Assessment and Plan Assessment & Plan (1) Persistent atrial fibrillation: Code(s): I48.19 - Other persistent atrial fibrillation Plan: Continue with anticoagulation with Xarelto (2) Essential hypertension: Code(s): I10 - Essential (primary) hypertension Plan: Continue with blood pressure medication. Decrease salt intake and exercise lisinopril 40 mg once a day hydrochlorothiazide 25 mg once a day carvedilol 6.25 mg twice a day (3) Type 2 diabetes mellitus with hyperglycemia: Comment: DR. Kang, DR. Hoskins 12/2022- Code(s): E11.65 - Type 2 diabetes mellitus with hyperglycemia Plan: Decrease the amount of carbohydrate intake, pasta, bread, rice and potatoes are all sugar and that is aside from all the sweet stuff, remember that fruits are good but they are Sweet also. On metformin a 1000 mg twice a day glyburide. (4) Multinodular goiter: Comment: Biopsy 2017 benign Code(s): E04.2 - Nontoxic multinodular goiter Plan: Patient has seen endocrinology and continue to monitor the TSH. Biopsy benign (5) Cardiomyopathy: Code(s): I42.9 - Cardiomyopathy, unspecified Qualifiers: Cardiomyopathy type: other Qualified Code(s): I42.8 - Other cardiomyopathies Plan: Patient is being followed up by Cardiology had a Cardiolite stress test (6) BPH w urinary obs/LUTS: Code(s): N40.1 - Benign prostatic hyperplasia with lower urinary tract symptoms; N13.8 - Other obstructive and reflux uropathy Plan: Continue to monitor elevated PSA under urology (7) Obesity (BMI 30-39.9): Code(s): E66.9 - Obesity, unspecified Plan: Diet and exercise noted weight loss! (8) Hypercholesterolemia: Code(s): E78.00 - Pure hypercholesterolemia, unspecified Plan: Avoid fried foods, chicken skin, eggs, butter margarine, pastries and meat. Be it pork or beef they have a lot of cholesterol LDL goal of less than 70 and triglyceride of less than 150 on simvastatin 20 patient advised to retest. Orders: Orders Complete Blood Count Auto Diff Today E11.65 - Type 2 diabetes mellitus with hyperglycemia Comprehensive Met. Panel Today E11.65 - Type 2 diabetes mellitus with hyperglycemia Free T4 (Free Thyroxine) Today E11.65 - Type 2 diabetes mellitus with hyperglycemia Thyroid Stimulating Hormone Today E11.65 - Type 2 diabetes mellitus with hyperglycemia Lipid Panel Today E11.65 - Type 2 diabetes mellitus with hyperglycemia, E78.00 - Pure hypercholesterolemia, unspecified AMB Hemoglobin A1c Today E11.65 - Type 2 diabetes mellitus with hyperglycemia Vitamin B12 and Folate Today E11.65 - Type 2 diabetes mellitus with hyperglycemia B Type Natriuretic Peptide Today I48.19 - Other persistent atrial fibrillation Medications: New dapagliflozin propanediol (Farxiga) 5 mg PO DAILY 30 tabs 3RF E11.65 - Type 2 diabetes mellitus with hyperglycemia Coding Level of Care Code Est Pt Level 4 (24868) Complex EM visit Add On G2211 Diagnoses Persistent atrial fibrillation I48.19 Essential hypertension I10 Type 2 diabetes mellitus with hyperglycemia E11.65 Multinodular goiter E04.2 Other cardiomyopathy I42.8 Cardiomyopathy type: other BPH w urinary obs/LUTS N40.1; N13.8 Obesity (BMI 30-39.9) E66.9 Hypercholesterolemia E78.00
== END 2024-06-03 18:12 | disposition home or self-care (01) ==
PROVIDERS: PCP Internal Medicine; Visit Provider Internal Medicine
DX: I48.19 Other persistent atrial fibrillation (principal); I10 Essential (primary) hypertension; E11.65 Type 2 diabetes mellitus with hyperglycemia; E04.2 Nontoxic multinodular goiter; I42.8 Other cardiomyopathies; N40.1 Benign prostatic hyperplasia with lower urinary tract symptoms; N13.8 Other obstructive and reflux uropathy; E66.9 Obesity, unspecified; E78.00 Pure hypercholesterolemia, unspecified

== ENCOUNTER → 2024-06-03 16:54 | Outpatient (BNVA) | payer MEDICARE, OTHER, SELFPAY | PROVIDERS: PCP Internal Medicine; Visit Provider Internal Medicine | DX: I48.19 Other persistent atrial fibrillation (principal); I10 Essential (primary) hypertension; E11.65 Type 2 diabetes mellitus with hyperglycemia; E04.2 Nontoxic multinodular goiter; I42.8 Other cardiomyopathies; N40.1 Benign prostatic hyperplasia with lower urinary tract symptoms; N13.8 Other obstructive and reflux uropathy; E66.9 Obesity, unspecified; E78.00 Pure hypercholesterolemia, unspecified; Z79.899 Other long term (current) drug therapy; Z79.84 Long term (current) use of oral hypoglycemic drugs; Z71.3 Dietary counseling and surveillance | CPT/HCPCS: 83036; 99212 ==

== ENCOUNTER 2024-06-05 07:45 | Outpatient (REF) | payer MEDICARE, OTHER, SELFPAY ==
[2024-06-05 07:55] LABS: MANUAL DIFF FLAG NO
[2024-06-05 08:29] LABS: Basophils Percent Auto 0.4 % (0-2); Eosinophils Absolute Auto 0.2 X10*3/uL (0.0-0.4); Eosinophils Percent Auto 1.5 % (0-4); Hematocrit 40.3 % (42.0-52.0); Hemoglobin 13.5 g/dl (14.0-18.0); Imm Gran Abs Auto 0.05 X10*3/uL (0.00-0.03); Imm Gran Pct Auto 0.5 % (0.0-0.4); Lymphocytes Absolute Auto 1.6 X10*3/uL (1.2-4.9); Lymphocytes Percent Auto 14.2 % (20-40); Mean Corpuscular HGB Conc 33.5 g/dl (31.0-36.0); Mean Corpuscular Hemoglobin 29.2 pg (27.0-33.0); Mean Corpuscular Volume 87.2 fL (80.0-98.0); Mean Platelet Volume 9.1 fL (9.4-12.4); Monocytes Absolute Auto 1.1 X10*3/uL (0.1-1.2); Monocytes Percent Auto 9.7 % (2-11); Neutrophils Absolute Auto 8.1 x10*3/uL (2.0-8.3); Neutrophils Percent Auto 73.7 % (45-73); Platelet Count 226 X10*3/uL (160-400); Red Blood Count 4.62 X10*6/uL (4.60-5.80); Red Cell Distribution Width 13.3 % (11.0-16.0)
[2024-06-05 08:47] LABS: B Type Natriuretic Peptide 197 pg/mL (<100)
[2024-06-05 09:04] LABS: Alanine Aminotransferase 20 U/L (0-40); Albumin Level 4.1 g/dL (3.5-5.0); Alkaline Phosphatase 52 U/L (39-117); Anion Gap 12 (12-20); Aspartate Amino Transferase 20 U/L (5-37); Bilirubin Total 1.1 mg/dL (0.0-1.0); Blood Urea Nitrogen 29 mg/dL (9-16); Calcium 9.2 mg/dL (8.4-10.2); Carbon Dioxide 28 mmol/L (22-29); Chloride 105 mmol/L (96-108); Cholesterol 104 mg/dL (<200); Estimated Glomerular Filt Rate 47; Glucose Random 85 mg/dL (60-115); HDL Cholesterol 24 mg/dL (>40); LDL Cholesterol Calculated 43 mg/dL (<100); Potassium 3.7 mmol/L (3.3-5.1); Sodium 141 mmol/L (135-145); Total Protein 7.3 g/dL (6.5-8.0); Triglycerides 186 mg/dL (<150)
[2024-06-05 09:30] LABS: Free T4 (Free Thyroxine) 1.13 ng/dL (0.71-1.85); Thyroid Stimulating Hormone 0.38 uIU/mL (0.32-4.0)
[2024-06-05 09:32] LABS: Folate 17.1 ng/mL (> or = 4.0); Vitamin B12 420 pg/mL (200-900)
== END 2024-06-05 07:46 | disposition home or self-care (01) ==
LOC: HO.LAB 07:45
PROVIDERS: Visit Provider Internal Medicine
DX: E11.65 Type 2 diabetes mellitus with hyperglycemia (principal); E78.00 Pure hypercholesterolemia, unspecified; I48.19 Other persistent atrial fibrillation
CPT/HCPCS: 36415; 80053; 80061; 82607; 82746; 83880; 84439; 84443; 85025

== ENCOUNTER 2024-09-17 15:34 | Outpatient (AMB) | payer MEDICARE, OTHER, SELFPAY ==
[2024-09-17 15:42] VITALS: BP 134/82; PULSE 59; O2SAT 100; BMI 30.2
--- NOTE | 2024-09-17 15:42 | MHC.PC.OV ---
Vital Signs 09/17/24 15:42 Height 6 ft 4 in Weight 248 lb 6 oz BMI 30.2 BP 134/82 Blood Pressure Location Lt brachial Position Sitting Pulse 59 Pulse Source Pulse Oximeter Pulse Oximetry (%) 100 Oxygen Delivery Method Room Air Intake Visit Reasons: DM. CArdiomyopathy Allergies sulfamethoxazole [From Sulfamethoxazole-Trimethoprim] Allergy (Intermediate, Verified 09/17/24 15:45) hives trimethoprim [From Sulfamethoxazole-Trimethoprim] Allergy (Intermediate, Verified 09/17/24 15:45) hives cephalexin [Keflex] Allergy (Unknown, Verified 09/17/24 15:45) unknown penicillin V Adverse Reaction (Unknown, Verified 09/17/24 15:45) shivering Tobacco use date assessed: 09/17/24 Fall risk assessment: No Falls in past year Last assessed Fall Risk: 09/17/24 Dental Screening Dental Screen Date: 09/17/24 Did you have a dental visit in the last 12 months?: No Did you have a dental problem in the last 6 months where you did not have access to dental care?: No Was dental information given to patient?: Patient has dentist HPI DM. CArdiomyopathy HPI Details The patient is a 74-year-old male presenting with the primary concerns of management of his Type 2 Diabetes Mellitus and symptoms suggestive of an upper respiratory tract infection. The patient reports a cold with a sore throat, mild cough, and occasional nasal drip. He denies experiencing fevers or painful swallowing. These symptoms have been present recently but are not accompanied by severe distress. For type 2 diabetes mellitus, the patient?s previous HbA1c was recorded at 8.4%, which has improved to 7.8%, although it is still above the target of below 7%. The patient has been on a regimen of Farxiga 5 mg, which he is now completing after three months on this dose. Weight management efforts are noted with a reported loss from 255 to 248 pounds since last visit. He experiences increased urination, which is associated with his ongoing Farxiga use. The patient has a history of hypertension, and his weight has been a noted concern. He experiences problems with balance and reports slight difficulty in maintaining stability on one foot but denies any recent falls or significant impairments in daily activities. He mentions a possible nasal drip, believed to be a side effect of medication. His recent medication regimen includes Farxiga, Metformin, and Glyburide, with ongoing blood glucose level monitoring. The patient confirmed no recent episodes of hypoglycemia. He also undergoes routine health maintenance and was reminded about receiving a flu shot and having previously completed a Cologuard test in 2020. It?s noted that his had a previous episode of COVID-19 in May, which caused mild short-term illness. The patient has been vaccinated for flu and COVID-19. The patient has no complaints regarding kidney function, and blood work will be re-checked in three months. 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 1. Little interest or pleasure in doing things: not at all 2. Feeling down, depressed, or hopeless: not at all 3. Trouble falling or staying asleep, or sleeping too much: not at all 4. Feeling tired or having little energy: not at all 5. Poor appetite or overeating: not at all 6. Feeling bad about yourself - or that you are a failure or have let yourself or your family down: not at all 7. Trouble concentrating on things, such as reading the newspaper or watching television: not at all 8. Moving or speaking so slowly that other people could have noticed. Or the opposite - being so fidgety or restless that you have been moving around a lot more than usual: not at all 9. Thoughts that you would be better off or of hurting yourself in some way: not at all Total score: 0 Depression Screening Interpretation: Negative Depression Screening Done: Yes 51114 - PHQ-9 Billing: Yes Source: Developed by Drs. Neil Ramesh, Anni Richard, Rodolfo Sosa and colleagues, with an educational sami from [employer]. Thrive Questionnaire Date Thrive assessed: 09/17/24 I am a: Patient What is your living situation today?: I have a steady place to live Within the past 12 months, did the food you bought not last and you didn't have the money to get more?: Never true Within the past 12 months, did you worry whether your food would run out before you got money to buy more?: Never true Do you have trouble paying for medicines?: No Do you have trouble getting transportation to medical appointments?: No Do you have trouble paying your heating and electricity bill?: No Do you have trouble taking care of your child, family member or friend?: No Do you have trouble with day-to-day activities such as bathing, preparing meals, shopping, managing finances, etc.?: No Are you currently unemployed and looking for a job?: No Are you interested in more education?: No Please select the resources that you would like help with: None Currently or been in a relationship where the following occur: No concerns reported THRIVE Score: 0 AUDIT C Alcohol Use Questionnaire (AUDIT-C) 1. How often do you have a drink containing alcohol?: Never 3. How often do you have six or more drinks on one occasion?: Never Total Score: 0 RIVERA-7 AMB Questionnaire RIVERA-7 Date RIVERA - 7 assessed: 09/17/24 Feeling nervous, anxious, or on edge: 0 = Not at all Not being able to stop or control worryin = Not at all Worrying too much about different things: 0 = Not at all Trouble relaxin = Not at all Being so restless that it is hard to sit still: 0 = Not at all Becoming easily annoyed or irritable: 0 = Not at all Feeling afraid as if something awful might happen: 0 = Not at all Total RIVERA-7 score (0-4 normal; 5-9 mild; 10-14 moderate; 15-21 severe): 0 Source: Developed by Drs. Neil Ramesh, Anni Richard, Rodolfo Sosa and colleagues, with an educational sami from [employer]. RIVERA-7 Assessment Billing RIVERA-7 Assessment Tool: RIVERA-7 Assessment 78488 Physical exam (Primary Care) Vital Signs: Last Vital Signs Pulse 59 09/17/24 15:42 BP 134/82 09/17/24 15:42 Pulse Ox 100 09/17/24 15:42 Oxygen Delivery Method Room Air 09/17/24 15:42 BMI result Body Mass Index 30.2 Tobacco/Smoking Status: Tobacco use Status Tobacco use date assessed 09/17/24 09/17/24 15:47 Patient Tobacco Use Status Never used Tobacco 09/17/24 15:47 e-Cigarette/Vaping Use Never Used 09/17/24 15:47 PHQ-9: PHQ-9 Score PHQ-9: Total score 0 09/17/24 15:47 Depression Screening Interpretation: Negative Thrive Assessment: Date of Thrive Assessment Date Thrive assessed 09/17/24 09/17/24 15:47 Currently or been in a relationship where the following occur: No concerns reported Const General: alert; No acute distress Eyes Conjunctivae: conjunctivae normal Resp Auscultation: clear to auscultation bilaterally Cardio Rate: regular rate Rhythm: regular rhythm GI Inspection: Yes normal to inspection Extrem General: Yes normal to inspection and No edema Results AMB Hemoglobin A1c AMB Hemoglobin A1c 7.8 % Last Edit by Odalys Stevens CMA on 09/17/24 15:51 Coding Level of Care Code Est Pt Level 4 (77887) Complex EM visit Add On G2211 Diagnoses Type 2 diabetes mellitus with hyperglycemia E11.65 BPH w urinary obs/LUTS N40.1; N13.8 Obesity (BMI 30-39.9) E66.9 Hypercholesterolemia E78.00 Anemia D64.9 Persistent atrial fibrillation I48.19 Essential hypertension I10 Colon cancer screening Z12.11 Additional Codes RIVERA-7 Assessment Billing - RIVERA-7 Assessment Tool: RIVERA-7 Assessment 38359 ([id number]) PHQ-9 - 35017 - PHQ-9 Billing: Yes ([id number]) Assessment & Plan Assessment & Plan (1) Type 2 diabetes mellitus with hyperglycemia: Comment: DR. Kang, DR. Hoskins 12/2022- Code(s): E11.65 - Type 2 diabetes mellitus with hyperglycemia Category: Medical Plan: Decrease the amount of carbohydrate intake, pasta, bread, rice and potatoes are all sugar and that is aside from all the sweet stuff, remember that fruits are good but they are Sweet also. Hemoglobin A1c goal of less than 7.0. Patient is on Farxiga 5 mg once a day glyburide metformin. (2) BPH w urinary obs/LUTS: Code(s): N40.1 - Benign prostatic hyperplasia with lower urinary tract symptoms; N13.8 - Other obstructive and reflux uropathy Category: Medical Plan: Continue with finasteride 5 mg once a day (3) Obesity (BMI 30-39.9): Code(s): E66.9 - Obesity, unspecified Category: Medical Plan: Diet and exercise noted weight loss (4) Hypercholesterolemia: Code(s): E78.00 - Pure hypercholesterolemia, unspecified Category: Medical Plan: Avoid fried foods, chicken skin, eggs, butter margarine, pastries and meat. Be it pork or beef they have a lot of cholesterol LDL goal of less than 70 and triglyceride of less than 150 May was the last blood work on Zetia and simvastatin (5) Anemia: Code(s): D64.9 - Anemia, unspecified Category: Medical Plan: Continue to monitor (6) Persistent atrial fibrillation: Code(s): I48.19 - Other persistent atrial fibrillation Category: Medical Plan: Continue with anticoagulation with Xarelto (7) Essential hypertension: Code(s): I10 - Essential (primary) hypertension Category: Medical Plan: Continue with blood pressure medication. Decrease salt intake and exercise on lisinopril 40 mg once a day hydrochlorothiazide 25 mg once a day and carvedilol 18.75 mg twice a day (8) Colon cancer screening: Code(s): Z12.11 - Encounter for screening for malignant neoplasm of colon Category: Medical Plan 1. - Reinforce preventative health measures including continued vaccination and flu vaccination: - Ensure ongoing monitoring of hypertension and regular assessment for associated risks. Current medications seem effective with no recent episodes of hypoglycemia. Orders: Orders Thyroid Stimulating Hormone 3 Months I48.19 - Other persistent atrial fibrillation Vitamin B12 and Folate 3 Months I48.19 - Other persistent atrial fibrillation B Type Natriuretic Peptide 3 Months I48.19 - Other persistent atrial fibrillation AMB Hemoglobin A1c Today Z13.9 - Encounter for screening, unspecified Complete Blood Count Auto Diff 3 Months I48.19 - Other persistent atrial fibrillation Comprehensive Met. Panel 3 Months I48.19 - Other persistent atrial fibrillation Free T4 (Free Thyroxine) 3 Months I48.19 - Other persistent atrial fibrillation Lipid Panel 3 Months E78.00 - Pure hypercholesterolemia, unspecified, I48.19 - Other persistent atrial fibrillation Hemoglobin A1c 3 Months I48.19 - Other persistent atrial fibrillation Ferritin 3 Months I48.19 - Other persistent atrial fibrillation IRON PROFILE 3 Months I48.19 - Other persistent atrial fibrillation Reticulocyte Count 3 Months I48.19 - Other persistent atrial fibrillation Referrals Cologuard Test Z12.11 - Encounter for screening for malignant neoplasm of colon, Z12.12 - Encounter for screening for malignant neoplasm of rectum Medications: Changed From dapagliflozin propanediol (Farxiga) 5 mg PO DAILY 90 tabs 2RF E11.65 - Type 2 diabetes mellitus with hyperglycemia To dapagliflozin propanediol 10 mg PO DAILY 90 days 90 tabs 2RF E11.65 - Type 2 diabetes mellitus with hyperglycemia
== END 2024-09-17 16:09 | disposition home or self-care (01) ==
PROVIDERS: PCP Internal Medicine; Visit Provider Internal Medicine
DX: E11.65 Type 2 diabetes mellitus with hyperglycemia (principal); I48.19 Other persistent atrial fibrillation; E66.9 Obesity, unspecified; Z68.30 Body mass index [BMI] 30.0-30.9, adult; N40.1 Benign prostatic hyperplasia with lower urinary tract symptoms; N13.8 Other obstructive and reflux uropathy; E78.00 Pure hypercholesterolemia, unspecified; D64.9 Anemia, unspecified; I10 Essential (primary) hypertension; Z12.11 Encounter for screening for malignant neoplasm of colon

== ENCOUNTER → 2024-09-17 15:34 | Outpatient (BNVA) | payer MEDICARE, OTHER, SELFPAY | PROVIDERS: PCP Internal Medicine; Visit Provider Internal Medicine | DX: E11.65 Type 2 diabetes mellitus with hyperglycemia (principal); N40.1 Benign prostatic hyperplasia with lower urinary tract symptoms; N13.8 Other obstructive and reflux uropathy; E78.00 Pure hypercholesterolemia, unspecified; D64.9 Anemia, unspecified; I48.19 Other persistent atrial fibrillation; I10 Essential (primary) hypertension | CPT/HCPCS: 83036; 96127; 99212 ==

== ENCOUNTER 2024-12-11 07:48 | Outpatient (REF) | payer MEDICARE, OTHER, SELFPAY ==
[2024-12-11 10:26] LABS: MANUAL DIFF FLAG NO
[2024-12-11 10:34] LABS: Basophils Percent Auto 0.3 % (0-2); Eosinophils Absolute Auto 0.3 X10*3/uL (0.0-0.4); Eosinophils Percent Auto 3.6 % (0-4); Hematocrit 44.9 % (42.0-52.0); Hemoglobin 14.8 g/dl (14.0-18.0); Imm Gran Abs Auto 0.03 X10*3/uL (0.00-0.03); Imm Gran Pct Auto 0.3 % (0.0-0.4); Immature Retic Fraction 11.1 % (2.3-13.4); Lymphocytes Absolute Auto 1.4 X10*3/uL (1.2-4.9); Lymphocytes Percent Auto 15.2 % (20-40); Mean Corpuscular Hemoglobin 28.6 pg (27.0-33.0); Mean Corpuscular Volume 86.7 fL (80.0-98.0); Mean Platelet Volume 9.6 fL (9.4-12.4); Monocytes Absolute Auto 0.7 X10*3/uL (0.1-1.2); Monocytes Percent Auto 7.7 % (2-11); Neutrophils Absolute Auto 6.5 x10*3/uL (2.0-8.3); Neutrophils Percent Auto 72.9 % (45-73); Platelet Count 157 X10*3/uL (160-400); Red Blood Count 5.18 X10*6/uL (4.60-5.80); Red Cell Distribution Width 13.6 % (11.0-16.0); Retic HGB Equivalent 32.7 pg (30.0-35.0); Reticulocyte Percent 1.7 % (0.5-1.8); Reticulocytes Absolute 0.088 X10*6/uL (0.026-0.095)
[2024-12-11 10:47] LABS: B Type Natriuretic Peptide 196 pg/mL (<100)
[2024-12-11 11:07] LABS: Estimated Average Glucose 163 mg/dL; Hemoglobin A1c % 7.3 % (<6.0); Total Hemoglobin (HGBA1C) 3858.1843 umol/L
[2024-12-11 11:19] LABS: Alanine Aminotransferase 20 U/L (0-40); Albumin Level 3.9 g/dL (3.5-5.0); Alkaline Phosphatase 54 U/L (39-117); Anion Gap 9 (12-20); Aspartate Amino Transferase 20 U/L (5-37); Bilirubin Total 0.7 mg/dL (0.0-1.0); Blood Urea Nitrogen 29 mg/dL (9-16); Calcium 9.3 mg/dL (8.4-10.2); Carbon Dioxide 30 mmol/L (22-29); Chloride 106 mmol/L (96-108); Cholesterol 100 mg/dL (<200); Estimated Glomerular Filt Rate 54; Glucose Random 86 mg/dL (60-115); HDL Cholesterol 29 mg/dL (>40); Iron 70 mcg/dL (45-160); LDL Cholesterol Calculated 42 mg/dL (<100); Percent Iron Saturation 26 % (15-50); Potassium 3.8 mmol/L (3.3-5.1); Sodium 141 mmol/L (135-145); Total Iron Binding Capacity 270 mcg/dL (228-428); Total Protein 6.8 g/dL (6.5-8.0); Triglycerides 147 mg/dL (<150); Unsaturated Iron Binding 200 ug/dL
[2024-12-11 11:28] LABS: Folate 15.9 ng/mL (> or = 4.0); Vitamin B12 436 pg/mL (200-900)
[2024-12-11 11:33] LABS: Ferritin 73 ng/mL (20-250); Thyroid Stimulating Hormone 0.59 uIU/mL (0.32-4.0)
== END 2024-12-11 07:49 | disposition home or self-care (01) ==
LOC: HO.10HDL 07:48
PROVIDERS: Visit Provider Internal Medicine
DX: I48.19 Other persistent atrial fibrillation (principal); E78.00 Pure hypercholesterolemia, unspecified
CPT/HCPCS: 36415; 80053; 80061; 82607; 82728; 82746; 83036; 83540; 83880; 84439; 84443; 85025; 85045

== ENCOUNTER 2024-12-26 11:06 | Outpatient (AMB) | payer MEDICARE, OTHER, SELFPAY ==
--- NOTE | 2024-12-26 11:24 | A.OFFPC_ITS ---
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 Accompanied by: Self / Same As Patient Allergies sulfamethoxazole [From Sulfamethoxazole-Trimethoprim] Allergy (Intermediate, Verified 12/26/24 11:39) hives trimethoprim [From Sulfamethoxazole-Trimethoprim] Allergy (Intermediate, Verified 12/26/24 11:39) hives cephalexin [Keflex] Allergy (Unknown, Verified 12/26/24 11:39) unknown penicillin V Adverse Reaction (Unknown, Verified 12/26/24 11:39) shivering Medication List - Last Reconciled 12/26/24 by Kirby Gerard MD allopurinol 100 mg PO DAILY carvedilol 12.5 mg PO BID carvedilol 6.25 mg PO BID dapagliflozin propanediol 10 mg PO DAILY 90 days ezetimibe 10 mg PO DAILY finasteride 5 mg PO DAILY 90 days glyburide Take 1 tablet in the morning and half a tablet in the evening PO; 90 days hydrochlorothiazide 25 mg PO DAILY lisinopril 40 mg PO DAILY metformin 1,000 mg (2 x 500 mg) PO BID rivaroxaban (Xarelto) 20 mg PO BEDTIME simvastatin 20 mg PO BEDTIME Tobacco use date assessed: 12/26/24 Fall risk assessment: No Falls in past year Last assessed Fall Risk: 12/26/24 Dental Screening Dental Screen Date: 12/26/24 Did you have a dental visit in the last 12 months?: No Did you have a dental problem in the last 6 months where you did not have access to dental care?: No Was dental information given to patient?: Patient has dentist [facility] Medical History (Updated 09/17/24 @ 16:03 by Kirby Gerard MD) Colon cancer screening Refractive amblyopia Diverticular disease Gout Hypercholesterolemia Obesity (BMI 30-39.9) Persistent atrial fibrillation Elevated PSA Multinodular goiter Essential hypertension 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 PAF (paroxysmal atrial fibrillation) Type 2 diabetes mellitus with hyperglycemia Surgical History S/P fine needle aspiration Hx of hernia repair Family History Father CVD (cardiovascular disease) Myocardial infarction Mother Hypertension Social History Housing: House Patient Tobacco Use Status: Never used Tobacco e-Cigarette/Vaping Use: Never Used Second Hand Smoke Exposure: No service: No Current occupational status: retired Cognitive needs: No Hearing needs: No Vision needs: Yes (Reading glasses) Questionnaire PHQ-9 Over the last 2 weeks, how often have you been bothered by any of the following problems? 1. Little interest or pleasure in doing things: not at all 2. Feeling down, depressed, or hopeless: not at all 3. Trouble falling or staying asleep, or sleeping too much: not at all 4. Feeling tired or having little energy: not at all 5. Poor appetite or overeating: not at all 6. Feeling bad about yourself - or that you are a failure or have let yourself or your family down: not at all 7. Trouble concentrating on things, such as reading the newspaper or watching television: not at all 8. Moving or speaking so slowly that other people could have noticed. Or the opposite - being so fidgety or restless that you have been moving around a lot more than usual: not at all 9. Thoughts that you would be better off or of hurting yourself in some way: not at all Total score: 0 Depression Screening Interpretation: Negative Depression Screening Done: Yes 47199 - PHQ-9 Billing: Yes Source: Developed by Drs. Neil Ramesh, Anni Richard, Rodolfo Sosa and colleagues, with an educational sami from [employer]. Thrive Questionnaire Date Thrive assessed: 12/26/24 I am a: Patient What is your living situation today?: I have a steady place to live Within the past 12 months, did the food you bought not last and you didn't have the money to get more?: Never true Within the past 12 months, did you worry whether your food would run out before you got money to buy more?: Never true Do you have trouble paying for medicines?: No Do you have trouble getting transportation to medical appointments?: No Do you have trouble paying your heating and electricity bill?: No Do you have trouble taking care of your child, family member or friend?: No Do you have trouble with day-to-day activities such as bathing, preparing meals, shopping, managing finances, etc.?: No Are you currently unemployed and looking for a job?: No Are you interested in more education?: No Please select the resources that you would like help with: None Currently or been in a relationship where the following occur: No concerns reported THRIVE Score: 0 AUDIT C Alcohol Use Questionnaire (AUDIT-C) 1. How often do you have a drink containing alcohol?: Monthly or less (Rarely) 2. How many drinks containing alcohol do you have on a typical day when you are drinking?: 1 or 2 3. How often do you have six or more drinks on one occasion?: Never Total Score: 1 Score Reviewed/Action Taken: No RIVERA-7 AMB Questionnaire RIVERA-7 Date RIVERA - 7 assessed: 12/26/24 Feeling nervous, anxious, or on edge: 0 = Not at all Not being able to stop or control worryin = Not at all Worrying too much about different things: 0 = Not at all Trouble relaxin = Not at all Being so restless that it is hard to sit still: 0 = Not at all Becoming easily annoyed or irritable: 0 = Not at all Feeling afraid as if something awful might happen: 0 = Not at all Total RIVERA-7 score (0-4 normal; 5-9 mild; 10-14 moderate; 15-21 severe): 0 Source: Developed by Drs. Neil Ramesh, Anni Richard, Rodolfo Sosa and colleagues, with an educational sami from [employer]. RIVERA-7 Assessment Billing RIVERA-7 Assessment Tool: RIVERA-7 Assessment 87095 Physical exam (Primary Care) Vital Signs: Last Vital Signs Temp 97.1 F 12/26/24 11:36 Pulse 52 12/26/24 11:36 Resp 20 12/26/24 11:36 BP 124/78 12/26/24 11:36 Pulse Ox 97 12/26/24 11:36 Oxygen Delivery Method Room Air 12/26/24 11:36 BMI result Body Mass Index 29.9 Tobacco/Smoking Status: Tobacco use Status Tobacco use date assessed 12/26/24 12/26/24 11:26 Patient Tobacco Use Status Never used Tobacco 12/26/24 11:46 e-Cigarette/Vaping Use Never Used 12/26/24 11:46 PHQ-9: PHQ-9 Score PHQ-9: Total score 0 12/26/24 12:04 Depression Screening Interpretation: Negative Thrive Assessment: Date of Thrive Assessment Date Thrive assessed 12/26/24 12/26/24 11:26 Currently or been in a relationship where the following occur: No concerns reported Const General: alert; No acute distress Eyes Conjunctivae: conjunctivae normal Resp Auscultation: clear to auscultation bilaterally Cardio Rate: regular rate Rhythm: regular rhythm GI Inspection: Yes normal to inspection Extrem General: Yes normal to inspection and No edema Coding Level of Care Code Est Pt Level 4 (51744) Complex EM visit Add On G2211 Diagnoses Type 2 diabetes mellitus with hyperglycemia E11.65 Other cardiomyopathy I42.8 Cardiomyopathy type: other BPH w urinary obs/LUTS N40.1; N13.8 Hypercholesterolemia E78.00 Essential hypertension I10 Persistent atrial fibrillation I48.19 Additional Codes RIVERA-7 Assessment Billing - RIVERA-7 Assessment Tool: RIVERA-7 Assessment 22439 ([id number]) PHQ-9 - 82033 - PHQ-9 Billing: Yes ([id number]) Assessment & Plan Assessment & Plan (1) Type 2 diabetes mellitus with hyperglycemia: Comment: DR. Kang, DR. Hoskins 12/2022- Code(s): E11.65 - Type 2 diabetes mellitus with hyperglycemia Category: Medical Plan: Decrease the amount of carbohydrate intake, pasta, bread, rice and potatoes are all sugar and that is aside from all the sweet stuff, remember that fruits are good but they are Sweet also. On glyburide metformin and Farxiga (2) Cardiomyopathy: Code(s): I42.9 - Cardiomyopathy, unspecified Category: Medical Qualifiers: Cardiomyopathy type: other Qualified Code(s): I42.8 - Other cardiomyopathies Plan: Continue with carvedilol hydrochlorothiazide lisinopril (3) BPH w urinary obs/LUTS: Code(s): N40.1 - Benign prostatic hyperplasia with lower urinary tract symptoms; N13.8 - Other obstructive and reflux uropathy Category: Medical Plan: Stable (4) Hypercholesterolemia: Code(s): E78.00 - Pure hypercholesterolemia, unspecified Category: Medical Plan: Avoid fried foods, chicken skin, eggs, butter margarine, pastries and meat. Be it pork or beef they have a lot of cholesterol LDL goal of less than 70 and triglyceride of less than 150 on simvastatin (5) Essential hypertension: Code(s): I10 - Essential (primary) hypertension Category: Medical Plan: Continue with blood pressure medication. Decrease salt intake and exercise patient on lisinopril 40 hydrochlorothiazide 25 carvedilol 18 point 75 mg twice a day (6) Persistent atrial fibrillation: Code(s): I48.19 - Other persistent atrial fibrillation Category: Medical Plan: Continue with anticoagulation Plan History of Present Illness The patient is a 74-year-old male presenting for follow-up of chronic medical conditions, including diabetes mellitus, cardiomyopathy, benign prostatic hyperplasia, atrial fibrillation, hypertension, and hyperlipidemia. Recent laboratory results have shown improved glucose control with a hemoglobin A1c of 7.3 and good management of LDL cholesterol at 42. His last complete blood count indicated mildly low platelets at 157, with normal renal and liver functions. The patient reports weight loss, which has positively affected his BMI, now re ducing under medical guidance through exercise, primarily walking regularly. He experiences nocturia but is not concerned and denies hypoglycemic events. His management involves medications for diabetes, hypertension, and lipids, with recent adjustments under careful observation. Health Maintenance - Cologuard screening is up to date with a negative result in September 2024. - Blood work completed on December 11 showed normal blood count with improved creatinine levels. - Continued focus on weight management and exercise to improve health outcomes. - No presence of proteinuria, normal thyroid, B12, and folic acid levels noted. - Blood pressure management includes a goal for LDL below 70 and triglycerides below 150. Social History - The patient engages in regular exercise, walking 10 to 12 times a month, covering two miles each session. - Achieved weight loss resulting in a BMI reduction from over 30 to above 20, now categorized under a healthier weight profile. Review of Systems - Cardiovascular: Reports atrial fibrillation. Denies chest pain. - Genitourinary: Reports nocturia 1-2 times per night. - Endocrine: Denies hypoglycemic episodes. - Musculoskeletal: Denies joint pain or muscle weakness. - General: Reports weight loss. Denies fever or chills. Physical Exam Results - Labs: Hemoglobin A1c decreased from 7.8 to 7.3. Blood glucose level of 86. LDL cholesterol at 42. Platelet count mildly low at 157. - Tests: Recent Cologuard negative. Stress test completed last week, though specifics not detailed. Plan 1. Simvastatin therapy focuses on sustaining LDL levels below 70, and triglycerides under 150, reflecting successful lipid control. The patient's blood pressure is stabilized with lisinopril, hydrochlorothiazide, and carvedilol. For diabetes, further enhancement comes from Jardiance and Farxiga. Kidneys will be under observation, leveraging lisinopril for protection. Regular physical activity remains crucial for cardiovascular health. He's advised of medication side effects and weighs infection risks from elevated glycosuria.: Patient was informed and verbally consented to the use of an ambient scribe for clinic note documentation during this visit. Discussion Notes During the visit, we discussed the progress of managing diabetes mellitus, with further goals set for reducing hemoglobin A1c and supporting lipid levels through lipid-lowering therapies. The benefits of exercise and weight loss impact have been emphasized, particularly regarding cholesterol management. The patient continues his regimented antihypertensive therapy. We discussed p otential risks associated with medications like Farxiga, addressing concerns of increased urination and risk of infections. Regular check-ups will continue to assess renal function and overall health metrics to prevent any further complications arising from diabetes and related cardiovascular risks. The patient is informed of the importance of follow-up monitoring, given the complexity of his chronic conditions. Patient Instructions - Continue medications as prescribed, focusing on glyburide, metformin, simvastatin, lisinopril, hydrochlorothiazide, and carvedilol. - Aim for regular exercise incorporating walking sessions to support cholesterol and cardiometabolic health. - Monitor for symptoms such as increased urination and possible infections due to effects of diabetes medication. - Maintain hydration, especially noting any changes in urination patterns at night. - Schedule regular follow-ups to assess and monitor blood sugar, blood pressure, and kidney function. - Notify the office for any symptoms indicating hypoglycemia or other adverse effects.
[2024-12-26 11:36] VITALS: BP 124/78; PULSE 52; RESP 20; TEMP 36.2; O2SAT 97; BMI 29.9
== END 2024-12-26 12:19 | disposition home or self-care (01) ==
LOC: HO.HMCH 11:07
PROVIDERS: PCP Internal Medicine; Visit Provider Internal Medicine
DX: E11.65 Type 2 diabetes mellitus with hyperglycemia (principal); I42.8 Other cardiomyopathies; I48.19 Other persistent atrial fibrillation; N40.1 Benign prostatic hyperplasia with lower urinary tract symptoms; N13.8 Other obstructive and reflux uropathy; E78.00 Pure hypercholesterolemia, unspecified; I10 Essential (primary) hypertension

== ENCOUNTER → 2024-12-26 11:06 | Outpatient (BNVA) | payer MEDICARE, OTHER, SELFPAY | PROVIDERS: PCP Internal Medicine; Visit Provider Internal Medicine | DX: E11.65 Type 2 diabetes mellitus with hyperglycemia (principal); I42.8 Other cardiomyopathies; N13.8 Other obstructive and reflux uropathy; N40.1 Benign prostatic hyperplasia with lower urinary tract symptoms; E78.00 Pure hypercholesterolemia, unspecified; I10 Essential (primary) hypertension; I48.19 Other persistent atrial fibrillation | CPT/HCPCS: 96127; 99212 ==

== ENCOUNTER 2025-01-02 10:15 | Outpatient (AMB) | payer MEDICARE, OTHER, SELFPAY ==
--- NOTE | 2025-01-02 10:25 | A.OFFVIS_ITS ---
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 Accompanied by: Self / Same As Patient Allergies sulfamethoxazole [From Sulfamethoxazole-Trimethoprim] Allergy (Intermediate, Verified 12/26/24 11:39) hives trimethoprim [From Sulfamethoxazole-Trimethoprim] Allergy (Intermediate, Verified 12/26/24 11:39) hives cephalexin [Keflex] Allergy (Unknown, Verified 12/26/24 11:39) unknown penicillin V Adverse Reaction (Unknown, Verified 12/26/24 11:39) shivering Medication List - Last Reconciled 01/02/25 by Zay Laguna MD allopurinol 100 mg PO DAILY carvedilol 12.5 mg PO BID carvedilol 6.25 mg PO BID dapagliflozin propanediol 10 mg PO DAILY 90 days ezetimibe 10 mg PO DAILY finasteride 5 mg PO DAILY 90 days glyburide Take 1 tablet in the morning and half a tablet in the evening PO; 90 days hydrochlorothiazide 25 mg PO DAILY lisinopril 40 mg PO DAILY metformin 1,000 mg (2 x 500 mg) PO BID rivaroxaban (Xarelto) 20 mg PO BEDTIME simvastatin 20 mg PO BEDTIME HPI Comments Details: Isaiah returns for follow-up regarding atrial fibrillation as well as cardiomyopathy. To recall, in 2014, he was admitted for shortness of breath and found to be in atrial fibrillation. Echocardiogram then revealed markedly diminished LVEF. Then underwent successful cardioversion and was also put on Xarelto. However, the last few years, he has been back in atrial fibrillation. He is maintained rather on rate control only per his own preference. He is active with absolutely no limitations. He states that he was even going up and down 3 flights of stairs with no issues. Exercise The patient reports engaging in walking, aiming for activity approximately 10 to 12 times a month. The walks are mostly on flat terrain, with some minor elevation changes, and are generally well-tolerated without inducing symptoms such as chest pain or shortness of breath. [facility] Medical History (Updated 09/17/24 @ 16:03 by Kirby Gerard MD) Colon cancer screening Refractive amblyopia Diverticular disease Gout Hypercholesterolemia Obesity (BMI 30-39.9) Persistent atrial fibrillation Elevated PSA Multinodular goiter Essential hypertension Cardiomyopathy senior living current use of anticoagulant PAF (paroxysmal atrial fibrillation) Type 2 diabetes mellitus with hyperglycemia Surgical History S/P fine needle aspiration Hx of hernia repair Family History Father CVD (cardiovascular disease) Myocardial infarction Mother Hypertension Social History Housing: House Patient Tobacco Use Status: Never used Tobacco e-Cigarette/Vaping Use: Never Used Second Hand Smoke Exposure: No service: No Current occupational status: retired Cognitive needs: No Hearing needs: No Vision needs: Yes (Reading glasses) Review of Systems Const Denies chills, Denies fatigue, Denies fever(s), Denies frequent falls, Denies we akness, Denies weight gain and Denies weight loss ENT Denies dizziness Card Denies chest pain, Denies leg edema, Denies lightheadedness, Denies palpit ations, Denies dyspnea and Denies dyspnea on exertion Resp Denies cough, Denies dyspnea and Denies dyspnea on exertion GI Denies hematochezia Musc Denies abnormal gait, Denies muscle weakness, Denies numbness, Denies radiating pain into limb and Denies tingling Neuro Denies abnormal gait, Denies dizziness, Denies frequent falls, Denies numbness, Denies tingling and Denies weakness Endo Denies fatigue and Denies palpitations Physical Exam Vital Signs: Last Vital Signs Pulse 94 01/02/25 10:27 BP 132/60 01/02/25 10:27 BMI result Body Mass Index 30.6 Const General: comfortable and no acute distress Orientation/consciousness: patient oriented x3 HEENT Other: Unremarkable Head: Yes normal to inspection Neck Neck: Yes normal visual inspection Chest Chest palpation & inspection: normal inspection of the chest Resp Auscultation: clear to auscultation bilaterally Cardio Palpation: normal PMI Heart sounds: S1 normal heart sound present, S2 normal heart sound present, no gallops, no murmurs and no rubs GI Palpation (GI): Soft to palpation Back/Spine/Pelvis Other: unremarkable Skin General skin exam: no rashes or lesions noted Neuro General: patient oriented x3 Extrem General: Yes normal to inspection Psych Mental Status: mental status grossly normal Assessment & Plan Assessment & Plan (1) Persistent atrial fibrillation: Code(s): I48.19 - Other persistent atrial fibrillation Category: Medical Plan: In the last Holter, underlying atrial fibrillation rapid rate of 89/Min. Thought to be adequately controlled. There are some rapid rates but he states that at that time, he was going up 3 flights of stairs. Continue beta-blockers and anticoagulation without changes. Cardioversion has been discussed many times but per his own preference, under rate control only. (2) Cardiomyopathy: Code(s): I42.9 - Cardiomyopathy, unspecified Category: Medical Qualifiers: Cardiomyopathy type: other Qualified Code(s): I42.8 - Other cardiomyopathies Plan: Most recently, LVEF is 50-55%. Basal inferior segment thought to be akinetic. Myocardial perfusion imaging study shows probable nontransmural infarct along the inferior wall/basal inferolateral wall. Clinically, he has no angina or any other cardiac symptoms. We discussed about medical therapy versus a diagnostic angiogram. He moderately just think about it for now and not make any decisions. Advised him to contact us with his decision. (3) PVC (premature ventricular contraction): Code(s): I49.3 - Ventricular premature depolarization Category: Medical Plan: In the Holter, PVC burden was about 4.1%. Could not exclude aberrant conduction. Continue beta-blockers. (4) Snoring: Code(s): R06.83 - Snoring Category: Medical Plan: Sleep study was completed and there is no evidence of any obstructive sleep apnea but he had continuous snoring. Recommended weight loss, as much able. (5) Morbid obesity due to excess calories: Code(s): E66.01 - Morbid (severe) obesity due to excess calories Category: Medical Plan: He has indeed been losing weight. That will be very beneficial for cardiovascular and general health. Plan Discussion Notes I discussed at length with the patient the previous stress test findings and diagnostic procedures such as a coronary angiogram. This non-urgent catheter- based procedure provides clarity on the potential coronary artery blockages seen last year. I assured the patient of the general safety, the diagnostic purpose, and explained the detailed steps involved. The benefits of having a clearer understanding of coronary conditions and potential risks of undiagnosed blockages were clearly articulated. The patient was informed about ongoing medication management and the option for interval follow-up based on symptomatic changes, allowing the patient to choose timing for further evaluation. Patient was informed and verbally consented to the use of an ambient scribe for clinic note documentation during this visit. Patient Instructions: - Continue taking the current medications. - Consider the angiogram procedure and discuss any questions or concerns at your convenience. - Monitor for any new symptoms such as chest pain or shortness of breath and report immediately. - Maintain regular physical activity as tolerated. - Follow up annually or sooner if symptoms develop. Coding Level of Care Code Est Pt Level 4 (30881) Complex EM visit Add On G2211 Diagnoses Persistent atrial fibrillation I48.19 Other cardiomyopathy I42.8 Cardiomyopathy type: other PVC (premature ventricular contraction) I49.3 Snoring R06.83 Morbid obesity due to excess calories E66.01
[2025-01-02 10:27] VITALS: BP 132/60; PULSE 94; BMI 30.6
== END 2025-01-02 10:51 | disposition home or self-care (01) ==
LOC: HO.HCS 10:16
PROVIDERS: PCP Internal Medicine; Visit Provider Internal Medicine
DX: I48.19 Other persistent atrial fibrillation (principal); I42.8 Other cardiomyopathies; I49.3 Ventricular premature depolarization; R06.83 Snoring; E66.01 Morbid (severe) obesity due to excess calories
CPT/HCPCS: 93010; 99214; G2211

== ENCOUNTER → 2025-01-02 10:15 | Outpatient (BNVA) | payer MEDICARE, OTHER, SELFPAY | PROVIDERS: PCP Internal Medicine; Visit Provider Internal Medicine | DX: I48.19 Other persistent atrial fibrillation (principal); I42.9 Cardiomyopathy, unspecified; I49.3 Ventricular premature depolarization; R06.83 Snoring; E66.01 Morbid (severe) obesity due to excess calories; Z68.30 Body mass index [BMI] 30.0-30.9, adult | CPT/HCPCS: 93005; 99212 ==

== ENCOUNTER 2025-04-03 07:24 | Outpatient (REF) | payer MEDICARE, OTHER, SELFPAY ==
--- OUTSIDE RECORDS SUMMARY | 2025-04-03 07:27 | XMS_ITS | Patient Health Record ---
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 Name Role Phone Kirby Gerard MD Primary Care Provider Neil Rinaldi [phone] Reason For Referral No Information Medications Medication SIG (Take, Route, Fr equency, Duration) Notes Start Date End Date Status Simvastatin Active Allopurinol 09/18/2024 09/18/2024 Active Baby Aspirin Active metFORMIN HCl Active Zetia Active glyBURIDE Active Lisinopril Active Problems Problem Type SNOMED Code ICD Code Onset Dates Problem Status W/U Status Risk Notes Problem Screening for malignant neoplasm of colon (180511023) Special screening for malignant neoplasms, colon (V76.51) Active confirmed Problem Diverticulosis (562.10) Active confirmed Plan Of Treatment Future Test Test Name Order Date COLONOSCOPY 02/01/2012 Insurance Providers Payer Name Payer Address Payer Phone Subscriber Number Group Number Insured Name Patient Relationship to Insured Coverage Start Date Coverage End Date MEDICARE OF [place] [address] [place] [address] [id number] ADALBERTO WILLETT Self - patient is the insured [employer] [address] [place] [address] [id number] ADALBERTO WILLETT Self - patient is the insured Medical (General) History Medical History History ICD Code DM Type 2 Hyperlipidemia Gout HTN Denies [place],CVA,Lung disease,renal disease Diverticulitis in 2000 Surgical History Surgery Date(Month/Year) Hernia
[2025-04-03 09:12] LABS: Prostate Specific Antigen 1.61 ng/mL (<0.05-4.0)
== END 2025-04-03 07:25 | disposition home or self-care (01) ==
LOC: HO.LAB 07:24
PROVIDERS: PCP Internal Medicine; Visit Provider Urology
DX: R97.20 Elevated prostate specific antigen [PSA] (principal)
CPT/HCPCS: 36415; 84153

== ENCOUNTER 2025-04-16 10:50 | Outpatient (AMB) | payer MEDICARE, OTHER, SELFPAY ==
--- NOTE | 2025-04-16 11:00 | A.OFFVIS_ITS ---
Intake Visit Reasons: 1y/PSA/PVR(psa?) Intake Note: Patient is present for 1yr follow up/PSA/PVR * 04/03 PSA: 1.61 Urology Med: Tamsulosin, Finasteride Antibiotic Allergy: Sulfa, Trimethroprim, Keflex, Penicillin Blood Thinner:Xarelto PVR:0ml Allergies sulfamethoxazole (From Sulfamethoxazole-Trimethoprim) Allergy (Intermediate, Verified 04/16/25 11:01) hives trimethoprim (From Sulfamethoxazole-Trimethoprim) Allergy (Intermediate, Verified 04/16/25 11:01) hives cephalexin (Keflex) Allergy (Unknown, Verified 04/16/25 11:01) unknown penicillin V Adverse Reaction (Unknown, Verified 04/16/25 11:01) shivering HPI Comments Details: Isaiah is a pleasant male. He is a patient of Dr. Gerard. He is seen for the following urologic condition - elevated PSA - lower urinary tract symptoms - orchitis Yearly evaluation PSA remains low Stopped Flomax at last visit Had continued finasteride Prescription provided Twelve month follow-up PSA Reduce finasteride every other day Trial daily tadalafil He will call if successful on once refill UA 3+ glucose. Farxiga. 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 PAF (paroxysmal atrial fibrillation) Type 2 diabetes mellitus with hyperglycemia Surgical History S/P fine needle aspiration Hx of hernia repair Family History Father CVD (cardiovascular disease) Myocardial infarction Mother Hypertension Social History Housing: House Patient Tobacco Use Status: Never used Tobacco e-Cigarette/Vaping Use: Never Used Second Hand Smoke Exposure: No service: No Current occupational status: retired Cognitive needs: No Hearing needs: No Vision needs: Yes (Reading glasses) Review of Systems Const Denies chills and Denies fever(s) Card Reports no additional complaints and Denies syncope Resp Denies cough GI Denies abdominal pain and Denies heartburn Reports as per HPI and Denies change in libido Neuro Denies syncope Psych Denies change in libido Endo Denies change in libido Physical Exam Const General: cooperative, healthy appearing, comfortable and no acute distress Orientation/consciousness: patient oriented x3 HEENT Face and sinus: Yes normal facial exam Mouth: moist mucous membranes Neck Neck: Yes normal visual inspection, Yes full ROM and Yes trachea midline Chest Chest palpation & inspection: normal inspection of the chest Resp Effort & Inspection: normal respiratory effort, able to speak in complete sentences and no respiratory distress GI Inspection: Yes normal to inspection Back/Spine/Pelvis Cervical Spine: normal cervical lordosis Thoracic/Lumbar Spine: thoracic and lumbar spine normal to inspection Skin General skin exam: no rashes or lesions noted Neuro General: patient oriented x3, gait normal, tone normal and moves all extremities Extrem General: Yes normal to inspection and Yes capillary refill normal Assessment & Plan Assessment & Plan (1) Elevated PSA: Code(s): R97.20 - Elevated prostate specific antigen [PSA] Category: Medical (2) BPH w urinary obs/LUTS: Code(s): N40.1 - Benign prostatic hyperplasia with lower urinary tract symptoms; N13.8 - Other obstructive and reflux uropathy Category: Medical Plan Twelve month follow-up Medications: New tadalafil 5 mg PO DAILY 30 tabs 1RF 30 days N13.8 - Other obstructive and reflux uropathy, N40.1 - Benign prostatic hyperplasia with lower urinary tract symptoms Patient Instructions: This note is constructed using voice recognition software. While every effort has been made to ensure accuracy crabbing machine operator errors may have been included. Imaging studies, laboratory and physical exam results were discussed and reviewed in detail. No major barriers to patient understanding were identified. An opportunity to ask questions regarding the treatment plan was provided. All questions were answered. The patient expressed understanding and agreement with the above treatment plan. The patient is aware they should contact our office by phone for worsening of their current condition or the appearance of new urologic symptoms. Compliance is encouraged with any medications and followup testing that is ordered. It is a privilege to participate in the urologic care of your patient. If you have any questions or concerns regarding treatment for the above conditions, or other urologic issues, please do not hesitate to contact me. The office telephone contact is [phone]. Sincerely, Dr Carlos Walker MD, [facility] - Urology Compassionate Specialist Care for the Genitourinary System Coding Level of Care Code Est Pt Level 4 (16667) Complex EM visit Add On G2211 Diagnoses Elevated PSA R97.20 BPH w urinary obs/LUTS N40.1; N13.8
--- OUTSIDE RECORDS SUMMARY | 2025-04-16 11:51 | XMS_ITS | Patient Health Record ---
Author Organization [facility] Address [address] [place] [address] Care Team Providers Care Trimming Department Blocker Name Role Phone Kirby Gerard MD Primary Care Provider Neil Rinaldi [phone] Reason For Referral No Information Medications Medication SIG (Take, Route, Fr equency, Duration) Notes Start Date End Date Status Simvastatin Active Allopurinol 09/18/2024 09/18/2024 Active Baby Aspirin Active metFORMIN HCl Active Zetia Active glyBURIDE Active Lisinopril Active Problems Problem Type SNOMED Code ICD Code Onset Dates Problem Status W/U Status Risk Notes Problem Screening for malignant neoplasm of colon (512311800) Special screening for malignant neoplasms, colon (V76.51) Active confirmed Problem Diverticular disease of colon (807173621) Diverticulosis (562.10) Active confirmed Plan Of Treatment Future Test Test Name Order Date COLONOSCOPY 02/01/2012 Insurance Providers Payer Name Payer Address Payer Phone Subscriber Number Group Number Insured Name Patient Relationship to Insured Coverage Start Date Coverage End Date MEDICARE OF [place] [address] [place] [address] [id number] ADALBERTO WILLETT Self - patient is the insured [facility] [employer] TH INDEMNITY [address] [place] [address] [phone] [id number] ADALBERTO WILLETT Self - patient is the insured Medical (General) History Medical History History ICD Code DM Type 2 Hyperlipidemia Gout HTN Denies [place],CVA,Lung disease,renal disease Diverticulitis in 2000 Surgical History Surgery Date(Month/Year) Hernia
== END 2025-04-16 11:38 | disposition home or self-care (01) ==
LOC: HO.HUSH 10:51
PROVIDERS: PCP Internal Medicine; Visit Provider Urology
DX: R97.20 Elevated prostate specific antigen [PSA] (principal); N40.1 Benign prostatic hyperplasia with lower urinary tract symptoms; N13.8 Other obstructive and reflux uropathy
CPT/HCPCS: 99214; G2211

== ENCOUNTER → 2025-04-16 10:50 | Outpatient (BNVA) | payer MEDICARE, OTHER, SELFPAY | PROVIDERS: PCP Internal Medicine; Visit Provider Urology | DX: R97.20 Elevated prostate specific antigen [PSA] (principal); N40.1 Benign prostatic hyperplasia with lower urinary tract symptoms; N13.8 Other obstructive and reflux uropathy | CPT/HCPCS: 99212 ==

== ENCOUNTER 2025-04-17 15:35 | Outpatient (AMB) | payer MEDICARE, OTHER, SELFPAY ==
[2025-04-17 15:38] VITALS: BP 114/78; PULSE 94; RESP 18; TEMP 36.2; O2SAT 98; BMI 29.9
--- NOTE | 2025-04-17 15:38 | A.OFFPC_ITS ---
Vital Signs 04/17/25 15:38 Height 6 ft 4 in Weight 246 lb BMI 29.9 BP 114/78 Blood Pressure Location Lt brachial Position Sitting Respiration 18 Pulse 94 Pulse Source Pulse Oximeter Temp 97.1 F Temp Source Temporal Artery Scan Pulse Oximetry (%) 98 Oxygen Delivery Method Room Air Intake Visit Reasons: 3 month f/u Allergies sulfamethoxazole (From Sulfamethoxazole-Trimethoprim) Allergy (Intermediate, Verified 04/17/25 15:38) hives trimethoprim (From Sulfamethoxazole-Trimethoprim) Allergy (Intermediate, Verified 04/17/25 15:38) hives cephalexin (Keflex) Allergy (Unknown, Verified 04/17/25 15:38) unknown penicillin V Adverse Reaction (Unknown, Verified 04/17/25 15:38) shivering Tobacco use date assessed: 04/17/25 Fall risk assessment: No Falls in past year Last assessed Fall Risk: 04/17/25 Dental Screening Dental Screen Date: 12/26/24 Did you have a dental visit in the last 12 months?: No Did you have a dental problem in the last 6 months where you did not have access to dental care?: No Was dental information given to patient?: Patient has dentist [facility] Medical History Colon cancer screening Refractive amblyopia Diverticular disease Gout Hypercholesterolemia Obesity (BMI 30-39.9) Persistent atrial fibrillation Elevated PSA Multinodular goiter Essential hypertension Cardiomyopathy USP current use of anticoagulant PAF (paroxysmal atrial fibrillation) Type 2 diabetes mellitus with hyperglycemia Surgical History S/P fine needle aspiration Hx of hernia repair Family History Father CVD (cardiovascular disease) Myocardial infarction Mother Hypertension Social History Housing: House Patient Tobacco Use Status: Never used Tobacco e-Cigarette/Vaping Use: Never Used Second Hand Smoke Exposure: No service: No Current occupational status: retired Cognitive needs: No Hearing needs: No Vision needs: Yes (Reading glasses) Questionnaire PHQ-9 Over the last 2 weeks, how often have you been bothered by any of the following problems? 1. Little interest or pleasure in doing things: not at all 2. Feeling down, depressed, or hopeless: not at all 3. Trouble falling or staying asleep, or sleeping too much: not at all 4. Feeling tired or having little energy: not at all 5. Poor appetite or overeating: not at all 6. Feeling bad about yourself - or that you are a failure or have let yourself or your family down: not at all 7. Trouble concentrating on things, such as reading the newspaper or watching television: not at all 8. Moving or speaking so slowly that other people could have noticed. Or the opposite - being so fidgety or restless that you have been moving around a lot more than usual: not at all 9. Thoughts that you would be better off or of hurting yourself in some way: not at all Total score: 0 Source: Developed by Drs. Neil Ramesh, Anni Richard, Rodolfo Sosa and colleagues, with an educational sami from [employer]. Thrive Questionnaire Date Thrive assessed: 04/10/25 I am a: Patient What is your living situation today?: I have a steady place to live Within the past 12 months, did the food you bought not last and you didn't have the money to get more?: Never true Within the past 12 months, did you worry whether your food would run out before you got money to buy more?: Never true Do you have trouble paying for medicines?: No Do you have trouble getting transportation to medical appointments?: No Do you have trouble paying your heating and electricity bill?: No Do you have trouble taking care of your child, family member or friend?: No Do you have trouble with day-to-day activities such as bathing, preparing meals, shopping, managing finances, etc.?: No Are you currently unemployed and looking for a job?: No Are you interested in more education?: No Please select the resources that you would like help with: None Currently or been in a relationship where the following occur: No concerns reported THRIVE Score: 0 AUDIT C Alcohol Use Questionnaire (AUDIT-C) 1. How often do you have a drink containing alcohol?: Never 3. How often do you have six or more drinks on one occasion?: Never Total Score: 0 RIVERA-7 AMB Questionnaire RIVERA-7 Date RIVERA - 7 assessed: 12/26/24 Feeling nervous, anxious, or on edge: 0 = Not at all Not being able to stop or control worryin = Not at all Worrying too much about different things: 0 = Not at all Trouble relaxin = Not at all Being so restless that it is hard to sit still: 0 = Not at all Becoming easily annoyed or irritable: 0 = Not at all Feeling afraid as if something awful might happen: 0 = Not at all Total RIVERA-7 score (0-4 normal; 5-9 mild; 10-14 moderate; 15-21 severe): 0 Source: Developed by Drs. Neil Ramesh, Anni Richard, Rodolfo Sosa and colleagues, with an educational sami from [employer]. Physical exam (Primary Care) Vital Signs: Last Vital Signs Temp 97.1 F 04/17/25 15:38 Pulse 94 04/17/25 15:38 Resp 18 04/17/25 15:38 BP 114/78 04/17/25 15:38 Pulse Ox 98 04/17/25 15:38 Oxygen Delivery Method Room Air 04/17/25 15:38 BMI result Body Mass Index 29.9 Tobacco/Smoking Status: Tobacco use Status Tobacco use date assessed 04/17/25 04/17/25 15:39 Patient Tobacco Use Status Never used Tobacco 04/17/25 15:38 e-Cigarette/Vaping Use Never Used 04/17/25 15:38 PHQ-9: PHQ-9 Score PHQ-9: Total score 0 04/17/25 15:55 Thrive Assessment: Date of Thrive Assessment Date Thrive assessed 04/10/25 04/17/25 15:38 Currently or been in a relationship where the following occur: No concerns reported Const General: alert; No acute distress Eyes Conjunctivae: conjunctivae normal Resp Auscultation: clear to auscultation bilaterally Cardio Rate: regular rate Rhythm: regular rhythm GI Inspection: Yes normal to inspection Extrem General: Yes normal to inspection and No edema Results AMB Hemoglobin A1c AMB Hemoglobin A1c 6.9 % Last Edit by Odalys Stevens CMA on 04/17/25 15:59 Results Reviewed Results Reviewed: Laboratory Last Values Hgb A1c (Clinic) 6.9 % (4.0-6.0) H 04/17/25 15:57 Coding Level of Care Code Est Pt Level 4 (70683) Complex EM visit Add On G2211 Diagnoses Type 2 diabetes mellitus with hyperglycemia E11.65 Essential hypertension I10 Persistent atrial fibrillation I48.19 Hypercholesterolemia E78.00 BPH w urinary obs/LUTS N40.1; N13.8 Assessment & Plan Assessment & Plan (1) Type 2 diabetes mellitus with hyperglycemia: Comment: DR. Kang, DR. Hoskins 12/2022- Code(s): E11.65 - Type 2 diabetes mellitus with hyperglycemia Category: Medical Plan: Decrease the amount of carbohydrate intake, pasta, bread, rice and potatoes are all sugar and that is aside from all the sweet stuff, remember that fruits are good but they are Sweet also. Hemoglobin A1c goal of less than 7.0. Patient on Farxiga glyburide metformin (2) Essential hypertension: Code(s): I10 - Essential (primary) hypertension Category: Medical Plan: Continue with blood pressure medication. Decrease salt intake and exercise patient is taking lisinopril 40 hydrochlorothiazide 25 carvedilol 12.5 mg twice a day (3) Persistent atrial fibrillation: Code(s): I48.19 - Other persistent atrial fibrillation Category: Medical Plan: Continue with anticoagulation and carvedilol patient on Xarelto (4) Hypercholesterolemia: Code(s): E78.00 - Pure hypercholesterolemia, unspecified Category: Medical Plan: Avoid fried foods, chicken skin, eggs, butter margarine, pastries and meat. Be it pork or beef they have a lot of cholesterol on simvastatin Zetia (5) BPH w urinary obs/LUTS: Code(s): N40.1 - Benign prostatic hyperplasia with lower urinary tract symptoms; N13.8 - Other obstructive and reflux uropathy Category: Medical Plan: Patient follows up with urology on finasteride but decreasing and tadalafil. Plan History of Present Illness The patient is a 74-year-old male presenting for a follow-up visit for chronic conditions management, including diabetes mellitus, cardiomyopathy, benign prostatic hyperplasia, hypercholesterolemia, atrial fibrillation, and hypertension. The patient has a history of diabetes mellitus, with a recent hemoglobin A1c of 6.9, down from 7.3 previously, indicating improved glycemic control. He is currently on Farxiga, glyburide, and metformin, and reports no episodes of hypoglycemia or dizziness. The patient has been advised to maintain an A1c goal of less than 7.0 and is encouraged to continue exercising and monitoring his diet. The patient has a history of cardiomyopathy and atrial fibrillation, which is currently controlled with beta blockers and anticoagulation therapy. He is on carvedilol and Xarelto, and his atrial fibrillation is noted to be controlled. The patient has benign prostatic hyperplasia and is on tamsulosin and finasteride. He was advised to reduce finasteride to three times a week and continues on tadalafil despite insurance issues. The patient has hypercholesterolemia and is on simvastatin and Zetia, with an LDL cholesterol level of 42. The patient has hypertension, managed with lisinopril, hydrochlorothiazide, and carvedilol. His blood pressure is well-controlled with the current regimen. Health Maintenance - Colon cancer screening with stool test completed in September 2024 - Eye examination conducted recently with normal findings - Discussion on shingles vaccination, recommended due to high efficacy in preventing shingles - COVID-19 booster vaccination discussed, with consideration for timing based on upcoming fall Social History - Exercise: Patient reports increased physical activity contributing to weight loss - Hydration: Patient drinks a lot of water during the day as advised Review of Systems - Endocrine: Reports no hypoglycemia or dizziness - Genitourinary: Reports nocturia, waking up once or twice at night to urinate - General: Denies swelling Physical Exam - Cardiovascular: Regular rate and rhythm, atrial fibrillation controlled - General: No swelling observed Results - Labs: Hemoglobin A1c 6.9, LDL cholesterol 42, creatinine 1.29, mild thrombocytopenia - Tests: Colon cancer screening with stool test completed in September 2024 Plan The management plan for diabetes mellitus includes maintaining the current regimen of Farxiga, glyburide, and metformin, with a target hemoglobin A1c of less than 7.0. The patient is encouraged to continue exercising and monitoring his diet to aid in glycemic control. For atrial fibrillation and cardiomyopathy, the patient will continue on carvedilol and Xarelto, with regular follow-ups to monitor cardiac status. The patient's atrial fibrillation is currently controlled, and no changes to the medication regimen are necessary at this time. The management of benign prostatic hyperplasia includes continuing tamsulosin and adjusting finasteride to three times a week. Tadalafil will be continued as tolerated, despite insurance challenges. For hypercholesterolemia, the patient will remain on simvastatin and Zetia, with an LDL cholesterol level of 42 indicating effective control. Hypertension management will continue with lisinopril, hydrochlorothiazide, and carvedilol, as the patient's blood pressure is well-controlled. Preventative care measures include a recent colon cancer screening with stool test and discussions on shingles and COVID-19 vaccinations. Patient was informed and verbally consented to the use of an ambient scribe for clinic note documentation during this visit. Discussion Notes During the visit, we discussed the management of diabetes mellitus, emphasizing the importance of maintaining an A1c below 7.0 and the role of exercise and diet in achieving this goal. We reviewed the current treatment for atrial fibrillation and cardiomyopathy, confirming that the condition is controlled with carvedilol and Xarelto. The patient was advised on the adjustment of finasteride dosage for benign prostatic hyperplasia and the continuation of tadalafil as tolerated. Preventative care discussions included the benefits of shingles and COVID-19 vaccinations, with a recommendation to consider these vaccinations due to their efficacy in preventing disease. Patient Instructions - Continue current diabetes medications and monitor blood sugar levels regularly. - Maintain regular exercise and a healthy diet to support diabetes management. - Continue taking carvedilol and Xarelto as prescribed for atrial fibrillation. - Adjust finasteride dosage to three times a week as advised. - Consider getting shingles and COVID-19 vaccinations as discussed. Orders: Orders AMB Hemoglobin A1c Today Z13.9 - Encounter for screening, unspecified
--- OUTSIDE RECORDS SUMMARY | 2025-04-17 15:39 | XMS_ITS | Patient Health Record ---
Author Organization [facility] Address [address] [place] [address] Care Team Providers Care Chief Operations Officer Name Role Phone Kirby Gerard MD Primary Care Provider Neil Rinaldi [phone] Reason For Referral No Information Medications Medication SIG (Take, Route, Fr equency, Duration) Notes Start Date End Date Status Simvastatin Active Allopurinol 09/18/2024 09/18/2024 Active Baby Aspirin Active metFORMIN HCl Active Zetia Active glyBURIDE Active Lisinopril Active Problems Problem Type SNOMED Code ICD Code Onset Dates Problem Status W/U Status Risk Notes Problem Screening for malignant neoplasm of colon (379447823) Special screening for malignant neoplasms, colon (V76.51) Active confirmed Problem Diverticular disease of colon (625350391) Diverticulosis (562.10) Active confirmed Plan Of Treatment Future Test Test Name Order Date COLONOSCOPY 02/01/2012 Insurance Providers Payer Name Payer Address Payer Phone Subscriber Number Group Number Insured Name Patient Relationship to Insured Coverage Start Date Coverage End Date MEDICARE OF [place] [address] [place] [address] [id number] ADALBERTO WILLETT Self - patient is the insured [facility] [employer] TH INDEMNITY [address] [place] [address] [id number] ADALBERTO WILLETT Self - patient is the insured Medical (General) History Medical History History ICD Code DM Type 2 Hyperlipidemia Gout HTN Denies [place],CVA,Lung disease,renal disease Diverticulitis in 2000 Surgical History Surgery Date(Month/Year) Hernia
== END 2025-04-17 16:19 | disposition home or self-care (01) ==
LOC: HO.HMCH 15:36
PROVIDERS: PCP Internal Medicine; Visit Provider Internal Medicine
DX: E11.65 Type 2 diabetes mellitus with hyperglycemia (principal); I10 Essential (primary) hypertension; I48.19 Other persistent atrial fibrillation; E78.00 Pure hypercholesterolemia, unspecified; N40.1 Benign prostatic hyperplasia with lower urinary tract symptoms; N13.8 Other obstructive and reflux uropathy; Z13.9 Encounter for screening, unspecified

== ENCOUNTER → 2025-04-17 15:35 | Outpatient (BNVA) | payer MEDICARE, OTHER, SELFPAY | PROVIDERS: PCP Internal Medicine; Visit Provider Internal Medicine | DX: E11.65 Type 2 diabetes mellitus with hyperglycemia (principal); I10 Essential (primary) hypertension; I48.19 Other persistent atrial fibrillation; E78.00 Pure hypercholesterolemia, unspecified; N40.1 Benign prostatic hyperplasia with lower urinary tract symptoms; N13.8 Other obstructive and reflux uropathy | CPT/HCPCS: 83036; 99212 ==

== ENCOUNTER 2025-08-12 15:12 | Outpatient (AMB) | payer MEDICARE, OTHER, SELFPAY ==
--- NOTE | 2025-08-12 15:20 | MHC.PC.OV ---
Vital Signs 08/12/25 15:21 Height 6 ft 4 in Weight 245 lb 4 oz BMI 29.8 BP 122/82 Blood Pressure Location Lt brachial Position Sitting Pulse 74 Pulse Source Pulse Oximeter Temp 97.1 F Temp Source Temporal Artery Scan Pulse Oximetry (%) 99 Oxygen Delivery Method Room Air Intake Visit Reasons: DM Allergies sulfamethoxazole (From Sulfamethoxazole-Trimethoprim) Allergy (Intermediate, Verified 08/12/25 15:24) hives trimethoprim (From Sulfamethoxazole-Trimethoprim) Allergy (Intermediate, Verified 08/12/25 15:24) hives cephalexin (Keflex) Allergy (Unknown, Verified 08/12/25 15:24) unknown penicillin V Adverse Reaction (Unknown, Verified 08/12/25 15:24) shivering Tobacco use date assessed: 08/12/25 Fall risk assessment: No Falls in past year Last assessed Fall Risk: 08/12/25 Dental Screening Dental Screen Date: 08/12/25 Did you have a dental visit in the last 12 months?: No Did you have a dental problem in the last 6 months where you did not have access to dental care?: No Was dental information given to patient?: Patient has dentist HPI HPI Comments History of Present Illness Details History of Present Illness The patient is a 75 year old individual presenting for a follow-up on multiple chronic conditions including diabetes mellitus, benign prostatic hyperplasia, hypercholesterolemia, atrial fibrillation, and hypertension. The patient was last seen for these conditions in March 2025. The patient reports a new complaint of left knee pain, which is also felt to a lesser degree in the right knee. The pain typically occurs after a period of rest, such as upon waking in the morning or after a nap, and is also noticed when using stairs. The pain is worse if the patient sleeps on the patient's side, does not occur while walking, and usually resolves within a short time after resuming activity. Regarding the patient's diabetes, today's hemoglobin A1c is 7.0%, which has improved since starting [facility]. Blood work from November 2024 showed a normal blood count with mild thrombocytopenia and an LDL cholesterol of 42. Past screenings include a Cologuard test in September 2024. An ophthalmology exam on April 17 revealed no diabetic retinopathy but the patient is being monitored for cataracts. A cardiology follow-up was notable for a discussion about cardiomyopathy, and an ultrasound of the heart in December of the previous year showed improvement. The patient reports experiencing easy bruising, which is attributed to being on a blood thinner. Health Maintenance The patient has initiated the shingles vaccine series and will proceed with the second dose as scheduled. The patient is up-to-date with colon cancer screening. Follow-up is scheduled after the new year, following completion of lab work. Social History - Activity Level: The patient reports walking does not cause knee pain and that breathing is fine with activity. - Housing: The patient's bedroom is located upstairs, requiring the use of stairs. Results - Labs: - Hemoglobin A1c (today): 7.0%. - Complete blood count (November 2024): Normal with mild thrombocytopenia. - LDL cholesterol (November 2024): 42 mg/dL. - Tests and Diagnostics: - Cologuard (September 2024): Results noted to be complete. - Eye Exam (April 17): No diabetic retinopathy. - Heart Ultrasound (December 2024): Showed improvement. 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 PAF (paroxysmal atrial fibrillation) Type 2 diabetes mellitus with hyperglycemia Surgical History S/P fine needle aspiration Hx of hernia repair Family History Father CVD (cardiovascular disease) Myocardial infarction Mother Hypertension Social History Housing: House Patient Tobacco Use Status: Never used Tobacco e-Cigarette/Vaping Use: Never Used Second Hand Smoke Exposure: No service: No Current occupational status: retired Cognitive needs: No Hearing needs: No Vision needs: Yes (Reading glasses) Questionnaire PHQ-9 Over the last 2 weeks, how often have you been bothered by any of the following problems? 1. Little interest or pleasure in doing things: not at all 2. Feeling down, depressed, or hopeless: not at all 3. Trouble falling or staying asleep, or sleeping too much: not at all 4. Feeling tired or having little energy: not at all 5. Poor appetite or overeating: not at all 6. Feeling bad about yourself - or that you are a failure or have let yourself or your family down: not at all 7. Trouble concentrating on things, such as reading the newspaper or watching television: not at all 8. Moving or speaking so slowly that other people could have noticed. Or the opposite - being so fidgety or restless that you have been moving around a lot more than usual: not at all 9. Thoughts that you would be better off or of hurting yourself in some way: not at all Total score: 0 Source: Developed by Drs. Neil Ramesh, Anni Richard, Rodolfo Sosa and colleagues, with an educational sami from [employer]. Thrive Questionnaire Date Thrive assessed: 04/10/25 I am a: Patient What is your living situation today?: I have a steady place to live Within the past 12 months, did the food you bought not last and you didn't have the money to get more?: Never true Within the past 12 months, did you worry whether your food would run out before you got money to buy more?: Never true Do you have trouble paying for medicines?: No Do you have trouble getting transportation to medical appointments?: No Do you have trouble paying your heating and electricity bill?: No Do you have trouble taking care of your child, family member or friend?: No Do you have trouble with day-to-day activities such as bathing, preparing meals, shopping, managing finances, etc.?: No Are you currently unemployed and looking for a job?: No Are you interested in more education?: No Please select the resources that you would like help with: None Currently or been in a relationship where the following occur: No concerns reported THRIVE Score: 0 AUDIT C Alcohol Use Questionnaire (AUDIT-C) 1. How often do you have a drink containing alcohol?: Never 3. How often do you have six or more drinks on one occasion?: Never Total Score: 0 RIVERA-7 AMB Questionnaire RIVERA-7 Date RIVERA - 7 assessed: 12/26/24 Feeling nervous, anxious, or on edge: 0 = Not at all Not being able to stop or control worryin = Not at all Worrying too much about different things: 0 = Not at all Trouble relaxin = Not at all Being so restless that it is hard to sit still: 0 = Not at all Becoming easily annoyed or irritable: 0 = Not at all Feeling afraid as if something awful might happen: 0 = Not at all Total RIVERA-7 score (0-4 normal; 5-9 mild; 10-14 moderate; 15-21 severe): 0 Source: Developed by Drs. Neil Ramesh, Anni Richard, Rodolfo Sosa and colleagues, with an educational sami from [employer]. Review of Systems Narrative Review of Systems - Constitutional: Reports transient muscle aches after the shingles vaccine. Denies fever. - Cardiovascular: Denies chest pain or palpitations. - Respiratory: Denies any breathing problems. - Musculoskeletal: Reports intermittent left knee pain that occurs after rest and improves with movement; also feels a little pain in the right knee. - Integumentary/Roge: Reports easy bruising and bleeding from minor scrapes, which the patient attributes to blood thinners. Denies prolonged bleeding from shaving cuts. - Eyes: Denies vision changes. Being monitored for cataracts. Physical exam (Primary Care) Vital Signs: Last Vital Signs Temp 97.1 F 08/12/25 15:21 Pulse 74 08/12/25 15:21 BP 122/82 08/12/25 15:21 Pulse Ox 99 08/12/25 15:21 Oxygen Delivery Method Room Air 08/12/25 15:21 BMI result Body Mass Index 29.8 Tobacco/Smoking Status: Tobacco use Status Tobacco use date assessed 08/12/25 08/12/25 15:25 Patient Tobacco Use Status Never used Tobacco 08/12/25 15:21 e-Cigarette/Vaping Use Never Used 08/12/25 15:21 PHQ-9: PHQ-9 Score PHQ-9: Total score 0 08/12/25 17:45 Thrive Assessment: Date of Thrive Assessment Date Thrive assessed 04/10/25 08/12/25 15:21 Currently or been in a relationship where the following occur: No concerns reported Narrative Physical Exam - Musculoskeletal: Examination of the left knee revealed no tenderness to palpation. Const General: alert; No acute distress Eyes Conjunctivae: conjunctivae normal Resp Auscultation: clear to auscultation bilaterally Cardio Other: Irregularly irregular GI Inspection: Yes normal to inspection Extrem General: Yes normal to inspection and No edema Results AMB Hemoglobin A1c AMB Hemoglobin A1c 7.0 % Last Edit by Odalys Stevens CMA on 08/12/25 15:30 Results Reviewed Results Reviewed: Laboratory Last Values Hgb A1c (Clinic) 7.0 % (4.0-6.0) H 08/12/25 15:26 Coding Level of Care Code Est Pt Level 4 (31334) Diagnoses Type 2 diabetes mellitus with hyperglycemia E11.65 Essential hypertension I10 Hypercholesterolemia E78.00 Persistent atrial fibrillation I48.19 Obesity (BMI 30-39.9) E66.9 BPH w urinary obs/LUTS N40.1; N13.8 Left knee pain M25.562 Assessment & Plan Assessment & Plan (1) Type 2 diabetes mellitus with hyperglycemia: Comment: DR. Kang, DR. Hoskins 12/2022- Code(s): E11.65 - Type 2 diabetes mellitus with hyperglycemia Category: Medical Plan: Decrease the amount of carbohydrate intake, pasta, bread, rice and potatoes are all sugar and that is aside from all the sweet stuff, remember that fruits are good but they are Sweet also. Hemoglobin A1c goal of less than 7.0. Patient is on Farxiga 10 mg once a day glyburide metformin (2) Essential hypertension: Code(s): I10 - Essential (primary) hypertension Category: Medical Plan: Continue with blood pressure medication. Decrease salt intake and exercise patient takes lisinopril 40 mg once a day hydrochlorothiazide 25 mg once a day carvedilol at 18 point 75 mg twice a day (3) Hypercholesterolemia: Code(s): E78.00 - Pure hypercholesterolemia, unspecified Category: Medical Plan: Avoid fried foods, chicken skin, eggs, butter margarine, pastries and meat. Be it pork or beef they have a lot of cholesterol patient on simvastatin 20 mg at bedtime (4) Persistent atrial fibrillation: Code(s): I48.19 - Other persistent atrial fibrillation Category: Medical Plan: Continue with anticoagulation with Xarelto at 20 mg once a day (5) Obesity (BMI 30-39.9): Code(s): E66.9 - Obesity, unspecified Category: Medical Plan: Diet and exercise (6) BPH w urinary obs/LUTS: Code(s): N40.1 - Benign prostatic hyperplasia with lower urinary tract symptoms; N13.8 - Other obstructive and reflux uropathy Category: Medical Plan: Continue with tadalafil (7) Left knee pain: Code(s): M25.562 - Pain in left knee Category: Medical Plan Plan Patient was informed and verbally consented to the use of an ambient scribe for clinic note documentation during this visit. 1. Diabetes Mellitus, Type 2 The patient's hemoglobin A1c is 7.0%, at the target goal, which has improved since initiating Farxiga. The patient will continue the current regimen of Farxiga, glyburide, and metformin. Emphasis was placed on maintaining glycemic control, especially through the upcoming holiday season. A requisition for fasting blood work, to be done in November, was provided. 2. Knee Pain The patient's symptoms are consistent with osteoarthritis. Management options were discussed, including Tylenol, topical anti-inflammatory gel, physical therapy, and injections. An X-ray of the knee was offered to assess the degree of arthritis, but the patient deferred at this time, preferring to monitor symptoms. The patient was advised to follow up if the pain worsens for further evaluation. 3. Atrial Fibrillation And Hypercholesterolemia The patient reports easy bruising, an expected side effect of anticoagulation, but no other issues. The patient will continue taking Xarelto 20 mg once daily for anticoagulation and simvastatin 40 mg at bedtime for hypercholesterolemia. A complete blood count and lipid panel will be included in the fasting lab work scheduled for November. 4. Hypertension The patient will continue taking carvedilol for blood pressure management. Discussion Notes I discussed the patient's new left knee pain, explaining that the symptoms are very typical for osteoarthritis, where pain and stiffness occur after rest and improve with movement due to fluid shifts in the joint. We reviewed management options, including Tylenol, topical anti-inflammatory gels like Voltaren, and I cautioned against frequent use of oral NSAIDs like ibuprofen due to potential kidney effects. I offered a knee X-ray, which the patient chose to postpone for now, preferring to monitor the symptoms. Regarding the patient's diabetes, I noted that the A1c of 7.0% is at our goal, though lower would be ideal, and acknowledged the improvement since starting Farxiga. I expressed the importance of maintaining this control through the holidays. I also explained that the easy bruising the patient has noticed is an expected side effect of the Xarelto and not a cause for alarm unless bleeding is significant or difficult to stop. I provided a lab requisition for fasting blood work to be done in November and advised the patient to follow up with me after the results are in. Patient Instructions - Continue taking all your current medications as prescribed, including those for diabetes, blood pressure, cholesterol, and the blood thinner Xarelto. - Be mindful of your diet, especially during the upcoming holidays, to keep your blood sugar under control. - For your knee pain, you can try Tylenol or an [id number]-[id number] anti-inflammatory gel that you rub on the knee. - Please let me know if your knee pain gets worse, and we can get an X-ray to take a closer look. - It is normal to bruise more easily while taking a blood thinner. However, if you have any bleeding that is severe or won't stop, you should seek medical attention. - Please go to the lab to have fasting blood work done in November. - Make sure to get your second shingles shot as scheduled. - Schedule a follow-up appointment with me after you complete your lab work. Orders: Orders Complete Blood Count Auto Diff 3 Months . - Type 2 diabetes mellitus with hyperglycemia Comprehensive Met. Panel 3 Months - Type 2 diabetes mellitus with hyperglycemia Microalbumin, Random (w Creat) 3 Months . - Type 2 diabetes mellitus with hyperglycemia Vitamin B12 and Folate 3 Months E11. - Type 2 diabetes mellitus with hyperglycemia NT Pro B Type Natriuretic Pept 3 Months E11. - Type 2 diabetes mellitus with hyperglycemia AMB Hemoglobin A1c Today Z13.9 - Encounter for screening, unspecified Free T4 (Free Thyroxine) 3 Months E11. - Type 2 diabetes mellitus with hyperglycemia Hemoglobin A1c 3 Months E11. - Type 2 diabetes mellitus with hyperglycemia Lipid Panel 3 Months E11. - Type 2 diabetes mellitus with hyperglycemia, E78.00 - Pure hypercholesterolemia, unspecified Creatinine Urine 3 Months E11. - Type 2 diabetes mellitus with hyperglycemia Thyroid Stimulating Hormone 3 Months E11. - Type 2 diabetes mellitus with hyperglycemia Prostate Specific Antigen Scr 3 Months E11. - Type 2 diabetes mellitus with hyperglycemia Magnesium 3 Months E11.65 - Type 2 diabetes mellitus with hyperglycemia
[2025-08-12 15:21] VITALS: BP 122/82; PULSE 74; TEMP 36.2; O2SAT 99; BMI 29.8
--- OUTSIDE RECORDS SUMMARY | 2025-08-12 18:52 | XMS_ITS | Patient Health Record ---
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 Section Notes: Nonsmoker; occasional beer Problems Problem Type SNOMED Code ICD Code Onset Dates Problem Status W/U Status Risk Notes Problem Screening for malignant neoplasm of colon (335485508) Special screening for malignant neoplasms, colon (V76.51) Active confirmed Problem Diverticular disease of colon (627402320) Diverticulosis (562.10) Active confirmed Plan Of Treatment Future Test Test Name Order Date COLONOSCOPY 02/01/2012 Insurance Providers Payer Name Payer Address Payer Phone Subscriber Number Group Number Insured Name Patient Relationship to Insured Coverage Start Date Coverage End Date MEDICARE OF [place] [address] [facility] [place] [address] [id number] ADALBERTO WILLETT Self - patient is the insured [facility] [address] [place] [address] [id number] ADALBERTO WILLETT Self - patient is the insured Medical (General) History Medical History History ICD Code DM Type 2 Hyperlipidemia Gout HTN Denies [place],CVA,Lung disease,renal disease Diverticulitis in 2000 Surgical History Surgery Date(Month/Year) Hernia
== END 2025-08-12 15:54 | disposition home or self-care (01) ==
LOC: HO.HMCH 15:13
PROVIDERS: PCP Internal Medicine; Visit Provider Internal Medicine
DX: E11.65 Type 2 diabetes mellitus with hyperglycemia (principal); I48.19 Other persistent atrial fibrillation; E66.9 Obesity, unspecified; Z68.29 Body mass index [BMI] 29.0-29.9, adult; I10 Essential (primary) hypertension; E78.00 Pure hypercholesterolemia, unspecified; N40.1 Benign prostatic hyperplasia with lower urinary tract symptoms; N13.8 Other obstructive and reflux uropathy; M25.562 Pain in left knee

== ENCOUNTER → 2025-08-12 15:12 | Outpatient (BNVA) | payer MEDICARE, OTHER, SELFPAY | PROVIDERS: PCP Internal Medicine; Visit Provider Internal Medicine | DX: E11.65 Type 2 diabetes mellitus with hyperglycemia (principal); E78.00 Pure hypercholesterolemia, unspecified; I10 Essential (primary) hypertension; I48.19 Other persistent atrial fibrillation; N40.1 Benign prostatic hyperplasia with lower urinary tract symptoms; N13.8 Other obstructive and reflux uropathy; M25.562 Pain in left knee; E66.9 Obesity, unspecified; Z68.29 Body mass index [BMI] 29.0-29.9, adult; Z71.3 Dietary counseling and surveillance | CPT/HCPCS: 83036; 99212 ==